=== PATIENT | female | born 1930 | race Caucasian/White ===

== ENCOUNTER 2016-12-06 06:42 | Emergency (ER) | payer MEDICARE, OTHER ==
[2016-12-06 07:22] VITALS: BP 129/85
--- NOTE | 2016-12-06 07:52 | ED ---
Head Injury - HPI Summary HPI Summary: Patient presents with her family after a mechanical fall at home. Her helped her up and she walked back to bed and slept until this AM. When she awoke there was blood on her pillow so she was brought in for evaluation. She denies LOC, neck pain, vomiting, amnesia or MÁRQUEZ. Her right rib hurts, but otherwise she has no hip, leg, shoulder, arm or back pain. She denies N/V/D or vision changes. - History Of Current Complaint Chief Complaint: EDHeadInjury Stated Complaint: FALL Time Seen by Provider: 12/06/16 07:13 Hx Obtained From: Patient, Family/Program Administrator Mechanism Of Injury: Fall From A Standing Position Onset/Duration: Started Hours Ago Onset of Pain: Immediate Severity Currently: Moderate Severity Initially: Moderate Pain Intensity: 6 Location of Head Injury: Parietal Character: Dull, Aching Associated Signs And Symptoms: Swelling - mild - Allergies/Home Medications Allergies/Adverse Reactions: Allergies Allergy/AdvReac Type Severity Reaction Status Date / Time No Known Allergies Allergy Verified 06/06/15 09:34 PMH/Surg Hx/FS Hx/Imm Hx Endocrine/Hematology History: Denies: Hx Anticoagulant Therapy Cardiovascular History: Reports: Hx Hypercholesterolemia, Hx Hypertension Denies: Hx Pacemaker/ICD GI History: Reports: Hx Diverticulosis Musculoskeletal History: Reports: Hx Arthritis, Hx Osteoporosis Denies: Hx Rheumatoid Arthritis Sensory History: Denies: Hx Hearing Aid Neurological History: Reports: Hx Dementia, Other Neuro Impairments/Disorders - intracranial hemorrhage 2010 Psychiatric History: Denies: Hx Panic Disorder - Cancer History Hx Chemotherapy: No Hx Radiation Therapy: No - Surgical History Surgery Procedure, Year, and Place: CATARACT 2000, POLYPECTOMY 2003 Infectious Disease History: No Infectious Disease History: Denies: Traveled Outside the [place] in Last 30 Days - Family History Known Family History: Positive: None - Social History Occupation: Retired Lives: With Family Alcohol Use: None Substance Use Type: Reports: None Smoking Status (MU): Never Smoked Tobacco Review of Systems Negative: Fever, Chills Negative: Blurred Vision, Diplopia, Drainage Negative: Chest Pain Negative: Shortness Of Breath Negative: Abdominal Pain, Vomiting, Nausea Negative: Edema Positive: Other - laceration to posterior scalp Negative: Headache, Weakness, Paresthesia All Other Systems Reviewed And Are Negative: Yes Physical Exam Triage Information Reviewed: Yes Vital Signs On Initial Exam: Initial Vitals Temp Pulse Resp BP Pulse Ox 98.3 F 57 18 92/54 98 12/06/16 06:46 12/06/16 06:46 12/06/16 06:46 12/06/16 06:46 12/06/16 06:46 Vital Signs Reviewed: Yes Appearance: Positive: Well-Appearing, No Pain Distress, Well-Nourished Skin: Positive: Warm, Skin Color Reflects Adequate Perfusion, Dry, Tender - posterior scalp, Soft Head/Face: Positive: Normal Head/Face Inspection Eyes: Positive: EOMI, ANTHONY, Conjunctiva Clear ENT: Positive: Hearing grossly normal, Pharynx normal, TMs normal Neck: Positive: Supple, Nontender, No Lymphadenopathy Respiratory/Lung Sounds: Positive: Clear to Auscultation, Breath Sounds Present Cardiovascular: Positive: Bradycardia Abdomen Description: Positive: Nontender, Soft Bowel Sounds: Positive: Present Musculoskeletal: Positive: Strength/ROM Intact, Pain @ - TTP right lower anterior ribs; non-tender pelvis, sternum, shoulders, bilateral LE Neurological: Positive: Sensory/Motor Intact, Alert, Oriented to Person Place, Time, CN Intact II-III, NV Bundle Intact Distally Psychiatric: Positive: Affect/Mood Appropriate AVPU Assessment: Alert - [place] Coma Scale Coma Scale Total: 15 Procedures - Laceration/Wound Repair 1 Location: head Description: Linear Anesthesia: Local, 2.0%, Lido, Epi Length, Depth and Shape: 1.5 cm long, 3mm wide, 3mm deep Irrigated w/ Saline (ccs): 200 Laceration/Wound Explored: clean Closure: [place] #__ - 6 Debridement: minimal Layer Closure?: No Sterile Dressing Applied?: No Diagnostics - Vital Signs Vital Signs Temp Pulse Resp BP Pulse Ox 12/06/16 07:22 98.7 F 59 14 129/85 93 12/06/16 07:20 98.7 F 57 14 129/58 93 12/06/16 07:00 55 93 12/06/16 06:59 55 93 12/06/16 06:57 129/58 12/06/16 06:46 98.3 F 57 18 92/54 98 - Laboratory Lab Statement: Any lab studies that have been ordered have been reviewed, and results considered in the medical decision making process. - CT No standard instances CT Interpretation: No Acute Changes CT Interpretation Completed By: Radiologist - CT brain negative; Head Injury Course/Dx - Diagnoses Differential Diagnosis/HQI/PQRI: Cerebral Contusion, Cervical Sprain, Contusion , Hematoma, Laceration, Skull Fracture Provider Diagnoses: Head injury, Laceration of scalp, Rib pain on right side Discharge - Discharge Plan Condition: Stable Disposition: HOME Patient Education Materials: Head Injury (ED), Staple Care (ED), Rib Contusion (ED) Referrals: Cassie Klein MD [Primary Care Provider] - Additional Instructions: Please follow-up with your primary care provider in 5 days for staple removal. Use Tylenol for pain. Make sure to take deep breaths at least once every hour. Return to the emergency department if your symptoms worsen.
--- NOTE | 2016-12-06 08:58 | RAD ---
HISTORY: Fall, scalp laceration COMPARISONS: January 07, 2015 TECHNIQUE: Multiple contiguous axial CT scans were obtained of the head without intravenous contrast. FINDINGS: HEMORRHAGE/INFARCT: There is no hemorrhage or acute infarct. MASSES/SHIFT: There is no mass or shift. EXTRA-AXIAL SPACES: There are no extra-axial fluid collections. SULCI AND VENTRICLES: The sulci and ventricles are normal in size and position for the patient's stated age. CEREBRUM: Again noted is a left occipital encephalomalacia. BRAINSTEM: There are no focal parenchymal abnormalities. CEREBELLUM: There are no focal parenchymal abnormalities. VESSELS: The vessels are grossly normal. PARANASAL SINUSES: The paranasal sinuses are clear. ORBITS: The orbits are unremarkable. BONES AND SOFT TISSUE: There is a right parietal scalp hematoma OTHER: None IMPRESSION: 1. NO ACUTE INTRACRANIAL PATHOLOGY. 2. STABLE LEFT OCCIPITAL ENCEPHALOMALACIA. 3. RIGHT PARIETAL SCALP HEMATOMA
--- NOTE | 2016-12-06 09:01 | RAD ---
HISTORY: Status post fall, head injury COMPARISONS: None TECHNIQUE: Multiple contiguous axial CT scans were obtained of the cervical spine without intravenous contrast, with coronal and sagittal multiplanar reformations. FINDINGS: BRAIN: Again noted is a left occipital encephalomalacia. CENTRAL CANAL: Evaluation of the central canal is limited on CT technique; however, there is no obvious canalicular mass or epidural hemorrhage. ALIGNMENT: The alignment is normal, without subluxation or dislocation. VERTEBRAL BODIES: There is diffuse osteopenia. Is multilevel anterolateral marginal osteophyte formation. There is no displaced fracture. JOINTS: There is osteoarthritis of the uncovertebral and facet joints MUSCULATURE: Unremarkable INTERVERTEBRAL DISCS: There is diffuse loss of intervertebral disc height. AXIAL IMAGES: C2-C3: There is bilateral uncovertebral and facet joints. There is moderate left neural foraminal narrowing. There is no osseous central canal stenosis. C3-C4: There is bilateral vertebral and facet hypertrophy. There is moderate bilateral neural foraminal narrowing. There is no osseous central canal stenosis. C4-C5: There is a broad-based disc osteophyte complex with bilateral uncovertebral facet hypertrophy. There is moderate to severe right and mild left neural foraminal narrowing. There is no osseous central canal stenosis. C5-C6: There is bilateral uncovertebral facet hypertrophy. There is moderate to severe bilateral neural foraminal narrowing. There is no osseous central canal stenosis. C6-C7: There is no osseous neural foraminal narrowing or central canal stenosis. C7-T1: There is no osseous neural foraminal narrowing or central canal stenosis. SOFT TISSUES: There is cavitation of the aortic arch and carotid bifurcations. The prevertebral fat stripe is preserved. OTHER: None. IMPRESSION: 1. OSTEOPENIA. 2. DEGENERATIVE DISC DISEASE AND OSTEOARTHRITIS. 3. ATHEROSCLEROSIS 4. NO ACUTE OSSEOUS INJURY TO THE CERVICAL SPINE
--- NOTE | 2016-12-06 10:12 | RAD ---
HISTORY: Fall, rib pain COMPARISONS: January 07, 2015 VIEWS: 2: Frontal and lateral views of the chest. FINDINGS: CARDIOMEDIASTINAL SILHOUETTE: The cardiomediastinal silhouette is stable. ASHANTI: The ashanti are normal. PLEURA: The costophrenic angles are sharp. No pleural abnormalities are noted. LUNG PARENCHYMA: The lungs are clear. ABDOMEN: The upper abdomen is clear. There is no subphrenic gas. BONES AND SOFT TISSUES: There is a scoliotic curvature of the spine OTHER: None. IMPRESSION: SCOLIOSIS. NO ACTIVE CARDIOPULMONARY DISEASE.
--- NOTE | 2016-12-06 10:13 | RAD ---
HISTORY: Right hip pain, fall COMPARISONS: None VIEWS: 3, Frontal view of the pelvis with frontal and frog-leg views of the right hip. The patient is obliqued to the left. FINDINGS: BONE DENSITY: There is diffuse osteopenia. BONES: There is no displaced fracture. JOINTS: There is mild osteoarthritis of the hips and SI joints ALIGNMENT: There is no dislocation. SOFT TISSUES: Unremarkable. OTHER FINDINGS: There is collateral curvature of the spine IMPRESSION: 1. OSTEOPENIA. 2. NO RADIOGRAPHIC EVIDENCE FOR HIP FRACTURE. X-RAYS MAY BE NEGATIVE WITH NONDISPLACED HIP FRACTURE, IF THERE IS PERSISTENT CLINICAL CONCERN, RECOMMEND CONSIDERATION OF MRI. IN THE SETTING OF CONTRAINDICATION TO MRI OR LIMITATION IN EMERGENT ACCESS TO MRI, CT WOULD BE SUGGESTED.
== END 2016-12-06 10:28 | disposition home or self-care (01) ==
LOC: ED 06:42
DX: S01.01XA Laceration without foreign body of scalp, initial encounter (principal); S09.90XA Unspecified injury of head, initial encounter; W19.XXXA Unspecified fall, initial encounter; Y93.9 Activity, unspecified; Y92.9 Unspecified place or not applicable; Y99.9 Unspecified external cause status
CPT/HCPCS: 12011; 70450; 71020; 72125; 99282

== ENCOUNTER 2017-07-25 09:52 | Inpatient (IN) | payer MEDICARE, OTHER ==
[2017-07-25] MEDS ORDERED: LORazepam INJ* 2 MG/ML 1 ML VIAL ONE (10:02)
[2017-07-25 10:15] LABS: Hematocrit 37 % (35-47); Hemoglobin 12.3 g/dl (12.0-16.0); Mean Corpuscular HGB Conc 33 g/dl (31-36); Mean Corpuscular Hemoglobin 32 pg (27-31); Mean Corpuscular Volume 95 fL (80-97); Mean Platelet Volume 9 um3 (7.4-10.4); Red Blood Count 3.91 10^6/ul (4.0-5.4); Red Cell Distribution Width 14 % (10.5-15); White Blood Count 10.7 10^3/ul (3.5-10.8)
[2017-07-25 10:33] LABS: Albumin 3.8 g/dL (3.2-5.2); BUN/Creatinine Ratio 10.2 (8-20); Calcium 10.4 mg/dL (8.6-10.3); EGFR African American 69.4 (>60); EGFR Non-African American 53.9 (>60); Globulin 2.6 g/dL (2-4); Potassium 4.2 mmol/L (3.5-5.0); Total Bilirubin 0.7 mg/dL (0.2-1.0); Total Protein 6.4 g/dL (6.4-8.9)
[2017-07-25 10:35] LABS: Troponin I 0.03 ng/mL (<0.04)
--- NOTE | 2017-07-25 10:36 | RAD ---
HISTORY: Right-sided weakness COMPARISONS: December 06, 2016 TECHNIQUE: Multiple contiguous axial CT scans were obtained of the head without intravenous contrast. FINDINGS: HEMORRHAGE/INFARCT: There is no hemorrhage or acute infarct. MASSES/SHIFT: There is no mass or shift. EXTRA-AXIAL SPACES: There are no extra-axial fluid collections. SULCI AND VENTRICLES: The sulci and ventricles are normal in size and position for the patient's stated age. CEREBRUM: There is encephalomalacia consistent with right infarct of the left parietal lobe, occipital lobe, and posterior temporal lobe. This is stable when compared to the December 06, 2016 examination. BRAINSTEM: There are no focal parenchymal abnormalities. CEREBELLUM: There are no focal parenchymal abnormalities. VESSELS: There is calcification of the cavernous segments of the internal carotid arteries bilaterally and of the distal vertebral arteries bilaterally. PARANASAL SINUSES: There is opacification of the sphenoid sinus with osteitis of the surrounding bone and high attenuation material within the sinus. There is an air-fluid level within the sphenoid sinus. ORBITS: The orbits are unremarkable. BONES AND SOFT TISSUE: No bone or soft tissue abnormalities are noted. OTHER: None IMPRESSION: 1. NO ACUTE INTRACRANIAL PATHOLOGY. 2. EVIDENCE OF REMOTE LEFT CAFETERIA AIDE TERRITORY STROKE. 3. FINDINGS SUGGESTIVE OF CHRONIC SPHENOID SINUSITIS, WITH HIGH ATTENUATION MATERIAL WHICH MAY INDICATE A FUNGAL COMPONENT. THERE IS AN AIR-FLUID LEVEL WHICH MAY INDICATE ACUTE ON CHRONIC SINUSITIS.
--- NOTE | 2017-07-25 11:04 | RAD ---
HISTORY: Right-sided weakness COMPARISONS: December 06, 2016 VIEWS: 1: frontal portable view of the chest at 10:35 AM FINDINGS: LINES AND TUBES: None. CARDIOMEDIASTINAL SILHOUETTE: The cardiac silhouette is enlarged. The cardiomediastinal silhouette is otherwise normal for portable technique. PLEURA: The costophrenic angles are sharp. No pleural abnormalities are noted. LUNG PARENCHYMA: There is hyperinflation. ABDOMEN: The upper abdomen is clear. There is no subphrenic gas. BONES AND SOFT TISSUES: There is a scoliotic curvature of the spine IMPRESSION: 1. CARDIOMEGALY. 2. COPD. 3. SCOLIOSIS.
[2017-07-25] MEDS ORDERED: Aspirin SUPP* 300 MG PR ONE (11:20)
[2017-07-25] MEDS ORDERED: Ondansetron INJ* 2 MG/ML VIAL IV PRN (12:15)
[2017-07-25] MEDS ORDERED: Acetaminophen SUPP* 650 MG SUPP PR PRN (12:15)
[2017-07-25] MEDS ORDERED: Zosyn per Pharmacy* NOTE FOLLOW UP SCH (13:00)
--- NOTE | 2017-07-25 13:42 | RAD ---
HISTORY: Stroke COMPARISONS: January 08, 2015 TECHNIQUE: Multiple transverse and longitudinal ultrasound images were obtained of the carotid and vertebral arteries bilaterally, using grayscale, color Doppler, and spectral Doppler imaging. FINDINGS: Measurement of carotid stenosis is based on flow velocity parameters that correlate the residual internal carotid artery diameter with [place] Symptomatic Carotid Endarterectomy Trial (NASCET)-based stenosis levels. RIGHT: Intima: There is diffuse intimal thickening with more focal atheroma formation at the bifurcation. Velocities: Right internal carotid artery maximum peak systolic velocity: 71 cm/s Right common carotid artery maximum peak systolic velocity: 81 cm/s Right internal carotid artery/common carotid artery ratio: 0.8 Waveforms: There is no spectral broadening. Right Vertebral: The right vertebral artery flow is antegrade. LEFT: Intima: There is diffuse intimal thickening with more focal atheroma formation at the bifurcation. Velocities: Left internal carotid artery maximum peak systolic velocity: 80 cm/s Left common carotid artery maximum peak systolic velocity: 46 cm/s Left internal carotid artery/common carotid artery ratio: 1.7 Waveforms: There is no spectral broadening. Left Vertebral: The left vertebral artery flow is antegrade. OTHER FINDINGS: None. IMPRESSION: 1. ATHEROMATOUS DISEASE. 2. NO HEMODYNAMICALLY SIGNIFICANT STENOSIS OF THE RIGHT INTERNAL CAROTID ARTERY BY FLOW VELOCITY MEASUREMENTS. THIS CORRESPONDS TO A LUMINAL DIAMETER OF LESS THAN 50% STENOSIS BY NASCET CRITERIA. 3. NO HEMODYNAMICALLY SIGNIFICANT STENOSIS OF THE LEFT INTERNAL CAROTID ARTERY BY FLOW VELOCITY MEASUREMENTS. THIS CORRESPONDS TO A LUMINAL DIAMETER OF LESS THAN 50% STENOSIS BY NASCET CRITERIA. 4. LOW VELOCITIES WITHIN THE COMMON CAROTID ARTERIES WHICH MAY REFLECT DECREASED CARDIAC OUTPUT. CPT II Codes: 3100F
[2017-07-25 13:47] LABS: Prolactin 69.5 ng/mL (1.0-25.0)
--- NOTE | 2017-07-25 13:51 | CONS ---
NEUROLOGY CONSULTATION: DATE OF CONSULT: 07/25/17. LOCATION: The patient is in the emergency department. REQUESTING PHYSICIAN: Gerard Navarro MD. REASON FOR CONSULT: Possible stroke. HISTORY OF PRESENT ILLNESS: Andres Cox is an 86-year-old woman with a history of a hemorrhagic stroke in 2010 as well as a small lacunar infarction in the left thalamus in 2014 who presented to the emergency department this morning when her daughter found her around 9 a.m. with staring and right-sided weakness. The patient was last seen normal last evening before she went to bed. Apparently, her daughter went to wake her up to get her breakfast around 9 a.m. this morning and the patient was able to awake and open her eyes but was just staring at her daughter and was not moving. The daughter contacted her sister, Magda Hoover who works here at [facility] [place] who advised that she call the ambulance because this is apparently a similar presentation to her first stroke in 2010. At baseline, the family tells me that the patient has very little in the way of deficits from her previous strokes. She is able to speak normally at baseline and is able to walk, though she has some dementia. She also did have some visual field problems after her hemorrhagic stroke which affected her left occipital region. Her daughter Magda believes that there may have been a seizure in the ambulance on the way here, but Dr. Navarro reports he was not given that information by placement assistant. There was definitely a seizure as the patient was being brought over to the CT scanner this morning. Dr. Navarro reports that even before this witnessed seizure the patient had right-sided weakness which is new. In addition, the patient has never had a witnessed seizure in the past according to family. She had essentially been in her normal state of health prior to this occurring this morning. PAST MEDICAL HISTORY: 1. Hemorrhagic stroke in 2010. 2. Ischemic stroke in the left thalamus in 2014. 3. Hyperlipidemia. 4. Hypertension, though patient is not on blood pressure medication aside from a diuretic. 5. Diverticulosis. 6. Arthritis. 7. Dementia. FAMILY HISTORY: Noncontributory at this time. SOCIAL HISTORY: No alcohol or tobacco use reported. She lives with her in a farm house and recently one of her daughters has come from [place] and is staying with them. HOME MEDICATIONS: 1. Escitalopram 10 mg daily. 2. Furosemide 20 mg half tablet daily. 3. Simvastatin 20 mg daily. 4. The family reports that the patient is not on an aspirin. ALLERGIES: No known drug allergies. PHYSICAL EXAMINATION: Vital Signs: Temperature 98.5, blood pressure 195/82, heart rate 68, oxygen saturation 99% on room air. On general examination, she is an elderly woman who is asleep in her hospital bed. She received 1 mg of Ativan IV when she had the seizure going to the CAT scanner. She does not open her eyes to voice or to sternal rub. She does not follow commands. Her heart is in irregular rhythm but it appears to be sinus on telemetry. Her lungs are clear to auscultation anteriorly. Musculoskeletal exam is notable for high arches and hammertoes. Intermittently, her left foot is noted to be inverted. There is no obvious joint erythema. There are no skin tears. On neurologic examination, she does not follow any commands as mentioned. Her gaze is midline. Pupils are equal, round and reactive from 4 to 2 mm bilaterally. There is no blink to threat in either barry. VORs are intact. There is no obvious facial asymmetry. On motor examination, she is flaccid in the right upper extremity. She has mildly increased tone in the left arm and more so in the left leg. She does have some effort against gravity when her left arm is lifted off the bed, but it would fall without being supported quickly. There is no effort in the right arm, except when noxious stimulation is applied she does flex the arm slightly and grimaces. She withdraws briskly in the other extremities. There is no inducible clonus. Her toes are chronically upgoing. LABORATORY DATA/DIAGNOSTIC STUDIES: CBC shows the white count of 10.7, hemoglobin 12.3, hematocrit 37, platelets of 219. Chemistry panel shows glucose of 159, calcium of 10.4 which is slightly above the upper limit of normal at 10.3, lactate 3.8. Her sodium, potassium are normal. LFTs are normal. Urinalysis has not been obtained. Coagulation studies show an INR of 0.86 and PTT of 19.7. A noncontrast brain CT was obtained and personally reviewed and shows an area of encephalomalacia in the left occipital lobe which is the area of prior hemorrhage by report. In addition, there is evidence of small vessel ischemic disease. The report also indicates that there are findings suggestive of chronic sphenoid sinusitis with high attenuation material, which may indicate a fungal component. There is an air-fluid level which may indicate an acute on chronic sinusitis. IMPRESSION: Andres Cox is a 86-year-old woman with a past history of both ischemic and hemorrhagic strokes in the past who presents today with new onset right hemiparesis as well as a seizure. The differential includes new left MCA territory stroke, complicated by seizure versus seizure complicated by postictal Johnnie's paralysis. She does have some evidence of increased tone in her left leg greater than left arm and given the fact that she had a witnessed seizure, I am going to ask the chorus dancer to perform an EEG quickly in order to evaluate for the possibility of subclinical seizures. If this is negative, then we will continue to watch her for any breakthrough seizure activity, but she should be admitted to the hospital for stroke workup including MRI of the brain, monitoring on telemetry, echocardiogram etc. She has been given an aspirin here in the emergency department. She is not a candidate for tPA secondary to her history of hemorrhagic stroke as well as last known normal to be last night before she went to bed. Thank you for this consultation. Dr. Jacobo takes over the neurology services evening and we will receive sign out on the patient. [id number]/[facility] #: [id number] [facility]IDE HOSPITALHarpal
--- NOTE | 2017-07-25 15:38 | HP ---
HISTORY AND PHYSICAL: ADDENDUM: Ms. Cox is an 86-year-old female with history of stroke in the past, who was brought into the hospital after she had a seizure-like episode in home and then in the ambulance. The patient was also noted to have a right- sided hemiparesis. She is going to be admitted to telemetry monitored floor for further evaluation of possibility of stroke and subsequent seizure or maybe seizure that caused Johnnie's paralysis. For further details of the patient's presentation and plan, please see history and physical dictated by Dick George NP, on 07/25/17, with which I agree. [id number]/[facility] #: [id number] MTDD
--- NOTE | 2017-07-25 16:11 | HP ---
ATTENDING PHYSICIAN ADDENDUM NOW INCLUDED ON THIS REPORT CC: Dr. Torres; Dr. Krueger * HISTORY AND PHYSICAL: DATE OF ADMISSION: 07/25/17 PRIMARY CARE PROVIDER: Dr. Torres. CONSULTING NEUROLOGIST: Dr. Krueger. ATTENDING PHYSICIAN WHILE IN THE HOSPITAL: Johana Ty MD * (report dictated by Dick George NP). CHIEF COMPLAINT: 1. Right-sided weakness. 2. Altered mental status. 3. Seizure. HISTORY OF PRESENT ILLNESS: I would like to preface this report by saying that the patient really cannot give much history at this moment and according to the daughter who lives with the patient, the patient last night was rather restless. She was talking to herself. She got up in the middle of night, thought that it was time to get up and she reoriented the patient. The patient went to bed about 9 o'clock last night. She was last seen normal at 9 o'clock. The daughter went up to evaluate the patient this morning and she noted that she was shaking, mumbling, and choking on her mucus and it appeared that she might have been having a seizure. So, she turned her to her side. She called her other family members and they said to call 911 and bring her to the hospital. She was nonresponsive. She was not acting herself. She would not respond to painful or verbal stimuli from the family. The patient came over via 911 and the family members were riding with her and while en route to the hospital, she had another what appeared to be a grand mal seizure. There was also noted to have right-sided weakness, the patient was not moving her right arm or right leg at that point. There have been no reports of change in medication. No reports of fevers, chills, nausea, vomiting. The patient has not been complaining of cough. Had not been having any fevers or had not been having any chest pain, abdominal discomfort, or any shortness of breath to their knowledge. They were concerned though obviously because of altered mental status. She came in to ER, was evaluated. Actually when she came in here, she was seizing and she was noted to have right-sided weakness, so we were asked to evaluate for admission. PAST MEDICAL HISTORY: 1. She has had a history of CVA. 2. She has had an intracranial hemorrhage. 3. She has had hypertension. 4. Hyperlipidemia. 5. Osteoarthritis. 6. History of CHF. 7. History of diverticulosis. PAST SURGICAL HISTORY: She has had an appendectomy. MEDICATIONS: The home meds include: 1. Simvastatin 20 mg daily. 2. Lasix 10 mg daily. 3. Lexapro 10 mg daily. ALLERGIES: Her allergies to medications include no known drug allergies. FAMILY HISTORY: Mother at the age of 58 of a heart attack. SOCIAL HISTORY: She has never been a smoker. She has never been a drinker. Her surrogate decision maker is her daughter, Magda. REVIEW OF SYSTEMS: Again, unable to be obtained from the patient as she is again nonverbal at this point. PHYSICAL EXAMINATION GENERAL: At this time, Mrs. Cox is an 86-year-old female patient. She is sitting in the ER stretcher. She does not appear to be in any acute respiratory distress. She appears to be well developed. VITAL SIGNS: Blood pressure 176/75, pulse 67, respirations 16, O2 sat 99%, and temperature 98.5. HEENT: Head: Atraumatic. Eyes: Sclerae are anicteric. Pupils are equal and reactive to light. Throat: Oral mucosa appears to be dry. No oropharyngeal erythema. NECK: Supple. LUNGS: Clear to auscultation bilaterally. No wheezes, rales, or rhonchi. HEART: Sounds S1, S2. Regular rate and rhythm. No murmurs, rubs, or gallops. ABDOMEN: Soft, flat, nontender. Bowel sounds were present. EXTREMITIES: She had no peripheral edema. Pulses are 2+ throughout. NEUROLOGIC: She will open her eyes to painful stimuli only. She is unable to say her name, unable to say what month it is or the place. 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 She is moving the left leg grossly. She is unable to follow commands for [id number] or [id number] at this point. She had no facial drooping and again she does appear to be hemiparetic on the right side. She has some movement in the right arm. She is not moving her right leg and again not really following simple commands. SKIN: Intact. DIAGNOSTIC STUDIES/LAB DATA: WBC 10.7, RBC of 3.91, hemoglobin 12.3, hematocrit 37, and platelet count of 219. INR was 0.86. PTT 19.7. Sodium 138 , potassium was 4.2, chloride of 102, bicarb 28, BUN 10, creatinine of 0.98, and glucose 159. Lactate 3.9. Calcium 10.4. Total bili 0.78, AST 19, ALT 10, alk phos 51. Troponin 0.03. Albumin 3.8. She did have a chest x-ray obtained today, which revealed cardiomegaly, COPD, and scoliosis. 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 There is an air fluid level, which may indicate acute on chronic sinusitis. There was an EKG obtained today, which showed a sinus rhythm with a rate of 71. She did have biphasic T waves in V4 and V5, and flat T wave at V6, which appeared to be new and there is also flattened T waves in II, III, and aVF, again all of which appeared to be new from previous EKG from 2 years ago. She did have an echo, which revealed an EF of greater than 65% and that was in 2015. Old medical records were reviewed. ASSESSMENT AND PLAN: Mrs. Cox is an 86-year-old female patient coming in to the ER today with complaints of right-sided weakness having seizures now presumably 2 seizures, possible aspiration pneumonia with the first seizure. We were asked to evaluate for admission. She will be admitted under inpatient status for: 1. Altered mental status. I suggest that she may have had, again it sounds like she had a seizure. Dr. Krueger is evaluating the patient. She was hooked up to EEG. She does not appear to be actively seizing now or in status. The patient was given 2 of Ativan. The plan would be to continue to monitor. Should she seize again, we will consider antiepileptics. She may also have had a stroke. She has right-sided hemiparesis particularly in the right upper extremity. The plan will be to get an MRI, carotid ultrasound. The family does not want to pursue aggressive surgeries or intracranial stenting or clot retrieval. They will continue with an MRI. We will forgo CTA. We will get an echo. She has been started on aspirin. I am holding on any DVT prophylaxis as I do not want her to have a hemorrhagic conversion. For the time being, we will get neuro checks every 2 hour. We will check lipids and A1c in the morning. I have ordered a swallow PT and OT evaluation and speech evaluation. 2. History of cerebrovascular accident. Again, continue with aspirin. 3. Intracranial hemorrhage. Not active at this point, but again we will watch closely. 4. Hypertension. Rule out for permissive hypertension in the setting of a possible acute cerebrovascular accident. We will treat if it is greater than 200 systolically or greater than 110 diastolically. Right now, she is okay. 5. Hyperlipidemia. Continue statin therapy when she is able to take p.o. 6. Arthritis. I have ordered p.r.n. Tylenol as needed. 7. History of congestive heart failure. We will diurese her as needed. 8. DVT prophylaxis. Again, SCDs only. 9. Code status. DNR. 10. Fluids, electrolytes, and nutrition. She is n.p.o. pending swallow eval, but at this point I do not think she will be able to participate in swallow safely. TIME SPENT: Time spent on the admission was 60 minutes, greater than half the time was spent [id number] with the patient obtaining my history and physical; other half time was spent going over the plan of care and implementing plan of care. I did discuss the plan of care with my attending, Dr. Ty, she is in agreement. DICK GEORGE NP ADDENDUM: Ms. Cox is an 86-year-old female with history of stroke in the past, who was brought into the hospital after she had a seizure-like episode in home and then in the ambulance. The patient was also noted to have a right-sided hemiparesis. She is going to be admitted to telemetry monitored floor for further evaluation of possibility of stroke and subsequent seizure or maybe seizure that caused Johnnie's paralysis. For further details of the patient's presentation and plan, please see history and physical dictated by Dick George NP, on 07/25/17, with which I agree. JOHANA TY MD [id number]/[facility]PS #: [id number]/CPS #: [id number] ITZEL
[2017-07-25 16:41] LABS: Urine Bilirubin Negative (Negative); Urine Glucose Negative (Negative); Urine Nitrite Negative (Negative)
--- NOTE | 2017-07-25 17:58 | ECHO ---
Patient: ANGELES STALLWORTH [facility] Rec#: [id number] : 1930 Date: 07/25/2017 Age: 86y Height: 157 cm / 61.8 in Weight: 45.4 kg / 100.1 lbs Sex: F BSA: 1.4 Room#: 437 Admit Date#: 07/25/2017 Type: Inpatient Referring: Dick George NP Reading: Kristen Stone MD Deli Clerk: Tabitha Wills RN RDCS CC: Cassie Torres MD Transthoracic Echocardiogram Indication: CVA BP: 176/75 HR: 61 Rhythm: NSR with PACs Findings History: HTN, HLD, CVAs, intracranial hemorrhage, pulmonary HTN, dementia Technical Comments: The study quality is fair. The study is technically limited due to patient body habitus. Completed at 1620. Left Ventricle: The left ventricular chamber size is normal. Global left ventricular wall motion and contractility are within normal limits. There is normal left ventricular systolic function. The estimated ejection fraction is 60-65%. There is an E to A reversal in the mitral valve flow pattern suggestive of diastolic dysfunction. Left Atrium: The left atrial chamber size is normal. Right Ventricle: The right ventricular cavity size is normal. The right ventricular global systolic function is normal. Right Atrium: The right atrial cavity size is normal. A patent foramen ovale is not demonstrated by color Doppler. A bubble study was unable to be performed at this time due to lack of IV access. Aortic Valve: The aortic valve is trileaflet. The aortic valve leaflets are mildly thickened. There is mild to moderate aortic regurgitation. There is no evidence of aortic stenosis. Mitral Valve: The mitral valve leaflets are mildly thickened. There is mild to moderate mitral regurgitation. There is no evidence of mitral stenosis. Tricuspid Valve: The tricuspid valve leaflets are normal. There is moderate tricuspid regurgitation. The tricuspid regurgitant jet is wall impinging. There is evidence of mild to moderate pulmonary hypertension. There is no tricuspid stenosis. Pulmonic Valve: The pulmonic valve appears normal. There is mild to moderate pulmonic regurgitation. There is no pulmonic stenosis. Pericardium: There is no significant pericardial effusion. Aorta: There is no dilatation of the ascending aorta. There is no dilatation of the aortic arch. There is no dilation of the aortic root. Pulmonary Artery: The main pulmonary artery appears normal. Venous: The inferior vena cava appears normal in size. There is a greater than 50% respiratory change in the inferior vena cava dimension. Summary: There are changes noted when compared to the previous study done on 01/09/2015, there is mild increase in mixed valvular disease velocity. Conclusions The left ventricular chamber size is normal. There is normal left ventricular systolic function. The estimated ejection fraction is 60-65%. There is an E to A reversal in the mitral valve flow pattern suggestive of diastolic dysfunction. A patent foramen ovale is not demonstrated by color Doppler. A bubble study was unable to be performed at this time due to lack of IV access. There is mild to moderate aortic regurgitation. There is mild to moderate mitral regurgitation. There is moderate tricuspid regurgitation. There is evidence of mild to moderate pulmonary hypertension. There is mild to moderate pulmonic regurgitation. There are changes noted when compared to the previous study done on 01/09/2015, there is mild increase in mixed valvular disease velocity. Measurements Name Value Normal Range RVDdMajor (2D) 3.3 cm (2.2 - 4.4) RAd ISD 4CH 4.7 cm (3.4 - 4.9) RA (A4C)W 4.1 cm (2.9 - 4.6) IVSd (2D) 1 cm (0.6 - 1) LVPWd (2D) 1 cm (0.6 - 1) LVIDd (2D) 3.6 cm (3.6 - 5.4) LVIDs (2D) 2.5 cm - LV FS (2D) 31 % (25 - 45) Aortic Annulus 2 cm (1.4 - 2.6) Ao root diameter (2D) 2.9 cm (2.1 - 3.5) Ascending Ao 3.4 cm (2.1 - 3.4) Aortic arch 3 cm (1.8 - 3.4) LA dimension (AP) 2D 3.6 cm (2.3 - 3.8) LAd ISD 4CH 4.3 cm (2.9 - 5.3) LA ISD 4CH W 3.8 cm (2.5 - 4.5) Name Value Normal Range LA ESV SP 4CH (A/L) 35.4 ml - LA ESV SP 2CH (A/L) 24.8 ml - LA ESV BP (A/L) 31.2 ml - LA ESV BP (A/L) index 21.8 ml/m2 - LA ESV SP 4CH (MOD) 34.3 ml - LA ESV SP 2CH (MOD) 23.1 ml - Name Value Normal Range MV E-wave Vmax 0.56 m/sec - MV deceleration time 223 msec - MV A-wave Vmax 0.71 m/sec - MV E:A ratio 0.79 ratio - LV septal e' Vmax 0.05 m/sec - LV lateral e' Vmax 0.06 m/sec - LV E:e' septal ratio 11.2 ratio - LV E:e' lateral ratio 9.3 ratio - Name Value Normal Range AV Vmax 1.2 m/sec - AV VTI 27 cm - AV peak gradient 6 mmHg - AV mean gradient 3.4 mmHg - LVOT Vmax 1 m/sec - LVOT VTI 24.3 cm - LVOT peak gradient 4.1 mmHg - LVOT mean gradient 3 mmHg - [place] Vmax 0.45 m/sec - Name Value Normal Range TR Vmax 3.2 m/sec - TR peak gradient 41 mmHg - RAP 3 mmHg - RVSP 44 mmHg - IVC diameter 1.2 cm - Name Value Normal Range PV Vmax 0.82 m/sec -
--- NOTE | 2017-07-25 18:31 | RAD ---
Indication: CVA. RIGHT-sided weakness. History of hemorrhagic stroke in 2010 and small lacunar infarct in 2014. Comparison: July 25, 2017 CT. January 08, 2015 MRI. Technique: Cognusea 1.5 Bibi AD526D with GEM suite. MRI brain without contrast. Report: Diffusion series is negative for acute or subacute ischemia. Stigmata of hemosiderin deposition corresponding with the region of encephalomalacia at the LEFT parietal and occipital lobes without change consistent with sequela of an old hemorrhagic infarct. Moderate diffuse prominence of the cerebral sulci. Mild enlargement of the ventricles. Patent basal cisterns. Multiple unchanged small lacunar infarcts at the bilateral cerebellar hemispheres. Increased signal in the periventricular and subcortical white matter of the cerebral hemispheres without gross change is most suggestive of chronic small vessel ischemic disease. Preserved major intracranial flow-voids. Unremarkable orbital contents. No suspicious calvarial or skull base lesions evident. Unremarkable scalp. IMPRESSION: 1. Stigmata of prior hemorrhagic infarct at the LEFT parietal and occipital lobes. 2. Multiple small lacunar infarcts at the cerebellar hemispheres. 3. Negative for stigmata of acute or subacute ischemia. 4. Negative for mass effect. 5. Involutional change and stigmata of chronic small vessel ischemic disease.
[2017-07-25] MEDS: ZOSYN 3.375 GM Q8H per EXTENDED INFUSION IVPB SCH ×2 (20:59)
--- NOTE | 2017-07-26 03:03 | EEG ---
ELECTROENCEPHALOGRAPHY: DATE OF STUDY: 07/25/17 LOCATION: The patient was in the emergency department. HISTORY: This is an 86-year-old woman with a history of prior strokes who was last seen normal last evening. She was found by her daughter unable to speak and having right-sided weakness. She then had a witnessed seizure in the ER and was given 1 mg of Ativan. She is now difficult to arouse, not following commands and with persistent right-sided weakness, but also increased tone on the left side. EEG is requested to evaluate for subclinical seizures. MEDICATIONS: 1. Zosyn. 2. Ondansetron. 3. Acetaminophen. 4. Aspirin. 5. Ativan 1 mg. DESCRIPTION: The background demonstrates diminished organization in terms of voltage and frequencies. In general, the background consists of mixed frequency , polymorphic slowing. Intermittently, there is a posterior rhythm identifiable in the right hemisphere, which is approximately 6 Hz, irregular and poorly sustained. This was not observed in the left hemisphere. The patient is noted to arouse somewhat easily to stimulation and there is some emergence of fast frequency activity. Throughout the recording, there were no epileptiform discharges, focal features , paroxysmal features or significant interhemispheric asymmetries. IMPRESSION: This is an abnormal EEG due to the presence of diffuse background slowing, a slow posterior rhythm, which is intermittently observable in the right hemisphere, but not present in the left hemisphere. These findings are suggestive of a mild to moderate, nonspecific, diffuse encephalopathy, which affects the left hemisphere to a greater degree. There are no epileptiform abnormalities or seizures noted during this recording. [id number]/[facility] #: [id number] [facility]
[2017-07-26 05:15] LABS: Hematocrit 32 % (35-47); Mean Corpuscular HGB Conc 34 g/dl (31-36); Mean Corpuscular Hemoglobin 33 pg (27-31); Mean Corpuscular Volume 97 fL (80-97); Red Blood Count 3.36 10^6/ul (4.0-5.4); Red Cell Distribution Width 14 % (10.5-15); White Blood Count 9.6 10^3/ul (3.5-10.8)
[2017-07-26 05:20] LABS: Add Diff/Slide Review? Slide Review Added; Comments Flag Yes
[2017-07-26] MEDS: ZOSYN 3.375 GM Q8H per EXTENDED INFUSION IVPB SCH ×2 (05:20)
[2017-07-26 05:24] LABS: BUN/Creatinine Ratio 12.3 (8-20); Blood Urea Nitrogen 14 mg/dL (6-24); CO2 Carbon Dioxide 30 mmol/L (22-32); Calcium 9.7 mg/dL (8.6-10.3); Chloride 105 mmol/L (101-111); Cholesterol 172 mg/dL; EGFR African American 58.3 (>60); EGFR Non-African American 45.3 (>60); Glucose 92 mg/dL (70-100); HDL Cholesterol 39.9 mg/dL; LDL Cholesterol 112 mg/dL; Sodium 138 mmol/L (133-145); Triglycerides 101 mg/dL
[2017-07-26 05:29] LABS: Anion Gap 3 mmol/L (2-11)
[2017-07-26 06:18] LABS: Mean Platelet Volume 10 um3 (7.4-10.4)
[2017-07-26] MEDS ORDERED: levETIRAcetam TAB* 500 MG PO SCH (09:00)
[2017-07-26] MEDS ORDERED: Influenza VAC *QUAD* 2017-18* 0.5 ML SYRINGE IM ONE (09:00)
--- NOTE | 2017-07-26 09:03 | PN ---
Subjective Date of Service: 07/26/17 Interval History: Patient not able to make her needs known. Objective Active Medications: Acetaminophen (Tylenol Supp*) 650 mg KS Q4H PRN PRN Reason: FEVER/PAIN Aspirin (Aspirin Supp*) 300 mg KS DAILY [facility] Levetiracetam (Keppra Iv Premix*) 500 mg in 100 mls @ 400 mls/hr IV Q12H [facility] Potassium Chloride/Dextrose (D5w 1/2 Ns Kcl 20 Meq 1000 Ml*) 1,000 mls @ 75 mls /hr IV PER RATE [facility] Influenza Virus Vaccine (Fluarix *Quad* 2016-*) 0.5 ml IM .ONCE ONE Stop: 07/26/17 09:01 Ondansetron HCl (Zofran Inj*) 4 mg IV Q6H PRN PRN Reason: NAUSEA Vital Signs 07/25/17 07/25/17 07/25/17 11:30 12:00 12:30 Temperature Pulse Rate 58 57 54 Respiratory 16 14 14 Rate Blood Pressure 162/63 168/69 164/66 (mmHg) O2 Sat by Pulse 99 100 100 Oximetry 07/25/17 07/25/17 07/25/17 13:00 14:00 14:05 Temperature 97.8 F 98.1 F Pulse Rate 64 64 64 Respiratory 19 16 Rate Blood Pressure 169/67 138/53 138/53 (mmHg) O2 Sat by Pulse 100 99 99 Oximetry 07/25/17 07/25/17 07/25/17 19:54 20:00 23:19 Temperature 98.2 F Pulse Rate 51 47 Respiratory 16 16 20 Rate Blood Pressure 148/80 115/52 (mmHg) O2 Sat by Pulse 100 100 Oximetry 07/26/17 07/26/17 07/26/17 01:25 03:24 07:47 Temperature 96.9 F 98.5 F Pulse Rate 52 44 Respiratory 20 20 Rate Blood Pressure 151/55 140/53 (mmHg) O2 Sat by Pulse 100 100 100 Oximetry Oxygen Devices in Use Now: Nasal Cannula Appearance: Lethargic, head partly up in bed. Neutral affect. Looks comfortable. Eyes: No Scleral Icterus Neck: NL Appearance and Movements; NL JVP, No Thyroid Enlargement, Masses Respiratory: Symmetrical Chest Expansion and Respiratory Effort, Clear to Auscultation, Clear to Percussion Extremities: No Edema, No Clubbing, Cyanosis, - Skin: No Rash or Ulcers, No Nodules or Sclerosis, - Neurological: - - Some eye contact. Severe aphasia, repeats nonsense syllable to every question, no sign of comprehension. No tremor. Result Diagrams: 07/26/17 04:58 07/26/17 04:58 Additional Lab and Data: Lab Results 07/25/17 07/25/17 07/25/17 Range/Units 10:00 10:00 10:00 WBC 10.7 (3.5-10.8) 10^3/ul RBC 3.91 L (4.0-5.4) 10^6/ul Hgb 12.3 (12.0-16.0) g/dl Hct 37 (35-47) % MCV 95 (80-97) fL MCH 32 H (27-31) pg MCHC 33 (31-36) g/dl RDW 14 (10.5-15) % Plt Count 219 (150-450) 10^3/ul MPV 9 (7.4-10.4) um3 Neut % (Auto) 69.8 (38-83) % Lymph % (Auto) 23.5 L (25-47) % [place] % (Auto) 4.9 (1-9) % Eos % (Auto) 1.0 (0-6) % Baso % (Auto) 0.8 (0-2) % Absolute Neuts (auto) 7.5 (1.5-7.7) 10^3/ul Absolute Lymphs (auto) 2.5 (1.0-4.8) 10^3/ul Absolute Monos (auto) 0.5 (0-0.8) 10^3/ul Absolute Eos (auto) 0.1 (0-0.6) 10^3/ul Absolute Basos (auto) 0.1 (0-0.2) 10^3/ul Absolute Nucleated RBC 0.01 10^3/ul Nucleated RBC % 0.1 INR (Anticoag Therapy) 0.86 L (0.89-1.11) APTT 19.7 L (26.0-36.3) seconds Sodium 138 (133-145) mmol/L Potassium 4.2 (3.5-5.0) mmol/L Chloride 102 (101-111) mmol/L Carbon Dioxide 28 (22-32) mmol/L Anion Gap 8 (2-11) mmol/L BUN 10 (6-24) mg/dL Creatinine 0.98 H (0.51-0.95) mg/dL Est GFR ( Amer) 69.4 (>60) Est GFR (Non-Af Amer) 53.9 (>60) BUN/Creatinine Ratio 10.2 (8-20) Glucose 159 H (70-100) mg/dL Lactic Acid (0.5-2.0) mmol/L Calcium 10.4 H (8.6-10.3) mg/dL Total Bilirubin 0.70 (0.2-1.0) mg/dL AST 19 (13-39) U/L ALT 10 (7-52) U/L Alkaline Phosphatase 61 (34-104) U/L Troponin I 0.03 (<0.04) ng/mL Total Protein 6.4 (6.4-8.9) g/dL Albumin 3.8 (3.2-5.2) g/dL Globulin 2.6 (2-4) g/dL Albumin/Globulin Ratio 1.5 (1-3) Blood Type Antibody Screen 07/25/17 07/25/17 Range/Units 10:00 10:00 WBC (3.5-10.8) 10^3/ul RBC (4.0-5.4) 10^6/ul Hgb (12.0-16.0) g/dl Hct (35-47) % MCV (80-97) fL MCH (27-31) pg MCHC (31-36) g/dl RDW (10.5-15) % Plt Count (150-450) 10^3/ul MPV (7.4-10.4) um3 Neut % (Auto) (38-83) % Lymph % (Auto) (25-47) % [place] % (Auto) (1-9) % Eos % (Auto) (0-6) % Baso % (Auto) (0-2) % Absolute Neuts (auto) (1.5-7.7) 10^3/ul Absolute Lymphs (auto) (1.0-4.8) 10^3/ul Absolute Monos (auto) (0-0.8) 10^3/ul Absolute Eos (auto) (0-0.6) 10^3/ul Absolute Basos (auto) (0-0.2) 10^3/ul Absolute Nucleated RBC 10^3/ul Nucleated RBC % INR (Anticoag Therapy) (0.89-1.11) APTT (26.0-36.3) seconds Sodium (133-145) mmol/L Potassium (3.5-5.0) mmol/L Chloride (101-111) mmol/L Carbon Dioxide (22-32) mmol/L Anion Gap (2-11) mmol/L BUN (6-24) mg/dL Creatinine (0.51-0.95) mg/dL Est GFR ( Amer) (>60) Est GFR (Non-Af Amer) (>60) BUN/Creatinine Ratio (8-20) Glucose (70-100) mg/dL Lactic Acid 3.8 H* (0.5-2.0) mmol/L Calcium (8.6-10.3) mg/dL Total Bilirubin (0.2-1.0) mg/dL AST (13-39) U/L ALT (7-52) U/L Alkaline Phosphatase (34-104) U/L Troponin I (<0.04) ng/mL Total Protein (6.4-8.9) g/dL Albumin (3.2-5.2) g/dL Globulin (2-4) g/dL Albumin/Globulin Ratio (1-3) Blood Type O Positive Antibody Screen Pending Assess/Plan/Problems-Billing Assessment: - Patient Problems (1) Seizure Current Visit: Yes Status: Acute Code(s): R56.9 - UNSPECIFIED CONVULSIONS SNOMED Code(s): 21178316 Comment: She may be having a prolonged post-ictal phase. IV fluids, IV levetiracetam. I discussed the dx and prognosis with her daughter. (2) Hx of intracranial hemorrhage Current Visit: No Status: Chronic Priority: Medium Code(s): Z86.79 - PERSONAL HISTORY OF OTHER DISEASES OF THE CIRCULATORY SYSTEM SNOMED Code(s): 431741816 Comment: Residual L occipital encephalomalacia.
[2017-07-26] MEDS: D5W 1/2 NS KCl 20 Meq 1000 ML* 1,000 ML IV SCH (09:41)
[2017-07-26] MEDS: levETIRAcetam 500 MG IVPREMIX* 500 MG/100 ML BAG IV SCH ×2 (10:17→21:06)
[2017-07-26] MEDS: Aspirin SUPP* 300 MG PR SCH (10:17)
[2017-07-26] MEDS: cefTRIAXone VIAL(*) 1,000 MG in NS 0.9% 50 ML* 50 ML IVPB SCH (15:34)
--- NOTE | 2017-07-26 15:46 | PN ---
PROGRESS NOTE: DATE OF PROGRESS NOTE: 07/26/17 CURRENT LOCATION: Room 437, bed 1. Overnight, there have been no new issues. She is more awake and alert this morning, but continues to have some speech difficulties. She is moving her right side again, does not appear to have any focal motor deficits at this time. The family is at bedside and states she seems better but continues to have speech problems. They note that she had a similar episode about 2 years ago. At that time she was admitted and had altered mental status, speech difficulties that lasted approximately 72 hours and then she made a remarkable recovery. At that time there was consideration of stroke, although it was unclear and unlikely that she had a new stroke. 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 MRI last night was done, and showed the old hemorrhagic left parietal and occipital lobe infarct and some small lacunar infarcts in the cerebellar hemispheres, but no acute changes. MRI was reviewed. Carotid ultrasound showed no hemodynamically significant stenosis, but evidence of possible decreased cardiac output. Transthoracic echocardiogram done yesterday showed an ejection fraction of 60% to 65%, diastolic dysfunction, no patent foraminal ovale. Normal left ventricular chamber size. Normal left ventricular systolic function. Mild-to- moderate mitral regurgitation. Moderate tricuspid regurgitation. Mild-to- moderate pulmonary hypertension. [id number] pulmonic regurgitation. Mild increase in mixed valvular disease, velocity, since her last echocardiogram in December 2014. Vital signs: Temperature 98.5, pulse rate of 44, respiratory rate of 20, pulse oximetry 100%, blood pressure 140/53. Blood pressures have been generally stable in 140s to 150s over 50s. In general, she is a thin, frail female lying in her hospital bed. She is sleeping and snoring but awakens easily, her family is at the bed side. HEENT: She is normo-cephalic and atraumatic. Sclerae anicteric. Mucous membranes are moist. Oropharynx is clear. Neck is supple. Chest: Clear to auscultation bilaterally. Cardiovascular: Regular rate and rhythm. Abdomen: Nontender. Extremities: No cyanosis or edema. Neurologic Exam: She awakens, and she is alert. She is oriented to her name. Her speech is nonfluent, she has some word finding difficulty. She is able to piece together several words and answer some questions appropriately but remains confused. She does have some baseline confusion, but her family states that this is worse. Her pupils were equal, round and reactive to light. Her extraocular muscles are intact. Her visual barry appear full to confrontation. Face is symmetric. Tongue is midline. Oropharynx is symmetric. Her motor exam, she spontaneously moves all extremities antigravity. There is no significant drift in the upper or lower extremities. She has some resistance, appears symmetric at this time. She does withdraw to pain x4. DTRs are 2+ and symmetric in the upper and lower extremities. Babinski is downgoing bilaterally. Ismcpt-hg-[id number] rapid alternating movements were difficult to assess. Gait was not tested. Lab work includes a urine which is negative. Normal white count with some anemia,11.0; hematocrit of 32, platelet count 137. INR 0.91. Chemistry, her basic metabolic panel this morning significant for creatinine 1.14, triglycerides to 101, cholesterol 172, LDL 112, HDL 39.9. Prolactin of 69.5 yesterday. Ms. Cox is an 86-year-old female with a known history of dementia, also history of hemorrhagic left occipitoparietal infarct in the past as well as some cerebellar infarcts, had an episode yesterday when she was found semi- conscious starring. In the ER, she had a witnessed seizure, and responded well to Ativan. Per the family she was started on Keppra for about a year back in 2010, when she had her initial stroke for prophylaxis, never had a seizure. She was taken off of it after about a year and has been seizure free since that time. She did have an admission back in 2014, at that time she presented in a very similar manner with speech difficulties, confusion, weakness and it lasted for approximately 72 hours and then resolved. It is unclear whether she had a seizure at that time, but it does not appear that she had a stroke. At this point she has clear risk factor for seizures including the old hemorrhagic stroke as well as dementia. The MRI did not show any evidence of a new stroke. My suspicion at this point is that she has had a prolonged postictal period. She may have had some Johnnie's paralysis initially on arrival, but that seems to have improved. I suspect over the next day or so, her speech will continue to improve and her mental status will improve as well, although she she does have baseline dementia. I would continue the Keppra indefinitely for now. We may consider another medication as an outpatient as the family states that the Keppra in the past made her feel groggy, but for now we will continue this medication. She may also be having some initial reaction to the dose of Keppra , which can sometimes cause some somnolence initially. She will continue to be monitored on seizure precautions. She has Ativan p.r.n. At this point, she is on a baby aspirin for stroke prevention, skilled nursing can consider statin as well, although I would try to minimize her medications for now. I will continue to follow her closely and make further recommendations as necessary. Thank you for the opportunity to participate in her care. [id number]/[facility] #: [id number] ITZEL
--- NOTE | 2017-07-26 18:45 | ED ---
Joseph Bradley Thomas, scribed for Gerard Navarro MD on 07/25/17 at 1041 . Neurological HPI - HPI Summary HPI Summary: The patient is an 86 y/o F with a Hx of ischemic and hemorrhagic CVA who is BIBA with aphasia and decreased movement. The patient was last known well last night. During the night she was jabbering. Yesterday, she was talking normally. She is accompanied by two family members. LEVEL FIVE CAVEAT: UNABLE TO COMMUNICATE - History of Current Complaint Chief Complaint: EDNeurologicalDeficit Stated Complaint: POSS STROKE Time Seen by Provider: 07/25/17 09:57 Hx Obtained From: EMS Hx From Patient Unobtainable Due To: Other - Unable to communicate Onset/Duration: Started days ago - Last known well last night, Still Present Timing: Constant Pain Intensity: 0 Character: Other: - Aphasia, unable to move Aggravating: Nothing Alleviating: Nothing - Allergy/Home Medications Allergies/Adverse Reactions: Allergies Allergy/AdvReac Type Severity Reaction Status Date / Time No Known Allergies Allergy Verified 06/06/15 09:34 Home Medications: Home Medications Escitalopram (NF) [Lexapro 10 mg (NF)] 10 mg PO DAILY 07/25/17 [History Confirmed 07/25/17] Furosemide TAB* [Lasix TAB*] 10 mg PO DAILY 07/25/17 [History Confirmed 07/25/17 ] Simvastatin TAB(NF) [Zocor(NF)] 20 mg PO BEDTIME 07/25/17 [History Confirmed ] Timolol 0.5% OPTH.ERA* 1 drop OPHTHALMIC BEDTIME 07/26/17 [History Confirmed ] PMH/Surg Hx/FS Hx/Imm Hx Previously Healthy: No - LEVEL FIVE CAVEAT: UNABLE TO COMMUNICATE Endocrine/Hematology History: Denies: Hx Anticoagulant Therapy Cardiovascular History: Reports: Hx Hypercholesterolemia, Hx Hypertension Denies: Hx Pacemaker/ICD GI History: Reports: Hx Diverticulosis Musculoskeletal History: Reports: Hx Arthritis, Hx Osteoporosis Denies: Hx Rheumatoid Arthritis Sensory History: Denies: Hx Hearing Aid Neurological History: Reports: Hx Dementia, Other Neuro Impairments/Disorders - intracranial hemorrhage 2010 Psychiatric History: Denies: Hx Panic Disorder - Cancer History Hx Chemotherapy: No Hx Radiation Therapy: No - Surgical History Surgery Procedure, Year, and Place: CATARACT 2000, POLYPECTOMY 2003 - Immunization History Immunizations Up to Date: Yes Infectious Disease History: No Infectious Disease History: Denies: Traveled Outside the [place] in Last 30 Days - Family History Known Family History: Positive: None - Social History Alcohol Use: None Substance Use Type: Reports: None Smoking Status (MU): Never Smoked Tobacco Review of Systems - ROS Summary Review of Systems Summary: LEVEL FIVE CAVEAT: UNABLE TO COMMUNICATE Neurological: Other - Aphasia, unable to communicate All Other Systems Reviewed And Are Negative: No Physical Exam - Summary Physical Exam Summary: LEVEL FIVE CAVEAT: UNABLE TO COMMUNICATE The patient is an elderly female lying in the stretcher. She opens her eyes but is not responding. She does not follow commands. She has a right-sided weakness. Her lungs are clear to auscultation bilaterally. Cardiovascular system: S1 and S2 present, no murmurs appreciated. The abdomen is soft and positive bowel sounds. There is no edema in the extremities. Triage Information Reviewed: Yes Vital Signs On Initial Exam: Initial Vitals BP 162/88 07/25/17 09:58 Vital Signs Reviewed: Yes - Jen Coma Scale Coma Scale Total: 5 Diagnostics - Vital Signs Vital Signs Temp Pulse Resp BP Pulse Ox 07/25/17 10:22 69 15 99 07/25/17 10:06 195/82 07/25/17 10:00 82 17 179/85 96 07/25/17 09:59 98.5 F 73 14 179/85 100 07/25/17 09:58 162/88 - Laboratory Lab Results: Lab Results 07/25/17 07/25/17 07/25/17 Range/Units 10:00 10:00 10:00 WBC 10.7 (3.5-10.8) 10^3/ul RBC 3.91 L (4.0-5.4) 10^6/ul Hgb 12.3 (12.0-16.0) g/dl Hct 37 (35-47) % MCV 95 (80-97) fL MCH 32 H (27-31) pg MCHC 33 (31-36) g/dl RDW 14 (10.5-15) % Plt Count 219 (150-450) 10^3/ul MPV 9 (7.4-10.4) um3 Neut % (Auto) 69.8 (38-83) % Lymph % (Auto) 23.5 L (25-47) % [place] % (Auto) 4.9 (1-9) % Eos % (Auto) 1.0 (0-6) % Baso % (Auto) 0.8 (0-2) % Absolute Neuts (auto) 7.5 (1.5-7.7) 10^3/ul Absolute Lymphs (auto) 2.5 (1.0-4.8) 10^3/ul Absolute Monos (auto) 0.5 (0-0.8) 10^3/ul Absolute Eos (auto) 0.1 (0-0.6) 10^3/ul Absolute Basos (auto) 0.1 (0-0.2) 10^3/ul Absolute Nucleated RBC 0.01 10^3/ul Nucleated RBC % 0.1 INR (Anticoag Therapy) 0.86 L (0.89-1.11) APTT 19.7 L (26.0-36.3) seconds Sodium 138 (133-145) mmol/L Potassium 4.2 (3.5-5.0) mmol/L Chloride 102 (101-111) mmol/L Carbon Dioxide 28 (22-32) mmol/L Anion Gap 8 (2-11) mmol/L BUN 10 (6-24) mg/dL Creatinine 0.98 H (0.51-0.95) mg/dL Est GFR ( Amer) 69.4 (>60) Est GFR (Non-Af Amer) 53.9 (>60) BUN/Creatinine Ratio 10.2 (8-20) Glucose 159 H (70-100) mg/dL Lactic Acid (0.5-2.0) mmol/L Calcium 10.4 H (8.6-10.3) mg/dL Total Bilirubin 0.70 (0.2-1.0) mg/dL AST 19 (13-39) U/L ALT 10 (7-52) U/L Alkaline Phosphatase 61 (34-104) U/L Troponin I 0.03 (<0.04) ng/mL Total Protein 6.4 (6.4-8.9) g/dL Albumin 3.8 (3.2-5.2) g/dL Globulin 2.6 (2-4) g/dL Albumin/Globulin Ratio 1.5 (1-3) Blood Type Antibody Screen 07/25/17 07/25/17 Range/Units 10:00 10:00 WBC (3.5-10.8) 10^3/ul RBC (4.0-5.4) 10^6/ul Hgb (12.0-16.0) g/dl Hct (35-47) % MCV (80-97) fL MCH (27-31) pg MCHC (31-36) g/dl RDW (10.5-15) % Plt Count (150-450) 10^3/ul MPV (7.4-10.4) um3 Neut % (Auto) (38-83) % Lymph % (Auto) (25-47) % [place] % (Auto) (1-9) % Eos % (Auto) (0-6) % Baso % (Auto) (0-2) % Absolute Neuts (auto) (1.5-7.7) 10^3/ul Absolute Lymphs (auto) (1.0-4.8) 10^3/ul Absolute Monos (auto) (0-0.8) 10^3/ul Absolute Eos (auto) (0-0.6) 10^3/ul Absolute Basos (auto) (0-0.2) 10^3/ul Absolute Nucleated RBC 10^3/ul Nucleated RBC % INR (Anticoag Therapy) (0.89-1.11) APTT (26.0-36.3) seconds Sodium (133-145) mmol/L Potassium (3.5-5.0) mmol/L Chloride (101-111) mmol/L Carbon Dioxide (22-32) mmol/L Anion Gap (2-11) mmol/L BUN (6-24) mg/dL Creatinine (0.51-0.95) mg/dL Est GFR ( Amer) (>60) Est GFR (Non-Af Amer) (>60) BUN/Creatinine Ratio (8-20) Glucose (70-100) mg/dL Lactic Acid 3.8 H* (0.5-2.0) mmol/L Calcium (8.6-10.3) mg/dL Total Bilirubin (0.2-1.0) mg/dL AST (13-39) U/L ALT (7-52) U/L Alkaline Phosphatase (34-104) U/L Troponin I (<0.04) ng/mL Total Protein (6.4-8.9) g/dL Albumin (3.2-5.2) g/dL Globulin (2-4) g/dL Albumin/Globulin Ratio (1-3) Blood Type O Positive Antibody Screen Pending Result Diagrams: 07/26/17 04:58 07/26/17 08:25 Lab Statement: Any lab studies that have been ordered have been reviewed, and results considered in the medical decision making process. - Radiology CXR Xray Interpretation: Positive (See Comments) - Cardiomegaly, COPD, Scoliosis. ED physician has reviewed this report and agrees. Radiology Interpretation Completed By: Radiologist - CT CT Brain CT Interpretation: Positive (See Comments) - 1. NO ACUTE INTRACRANIAL PATHOLOGY. 2. 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 3. FINDINGS SUGGESTIVE OF CHRONIC SPHENOID SINUSITIS, WITH HIGH ATTENUATION MATERIAL WHICH MAY INDICATE A FUNGAL COMPONENT. THERE IS AN AIR-FLUID LEVEL WHICH MAY INDICATE ACUTE ON CHRONIC SINUSITIS. ED physician has reviewed this report and agrees. CT Interpretation Completed By: Radiologist - EKG 10:06 Cardiac Rate: NL - 71 BPM EKG Rhythm: Sinus Rhythm EKG Interpretation: No ST elevations. Q waves in II, III, AVF. TWI in V4, V6. NIH Scale - NIH Scale Level of Consciousness: Alert/Keenly Responsive Ask Patient the Month and His/Her Age: Neither Correct/Aphasic Ask Pt to Open/Close Eyes and Assistant Banquet Manager/Release Non-Paretic Hand: Neither Correctly Best Gaze (Only Horizontal Eye Movement): Normal Visual Field Testing: Bilateral Hemianopia Facial Paresis-Pt to Smile & Close Eyes or Grimace Symmetry: Normal/Symmetrical Motor Function - Right Arm: No Effort Against Conner Motor Function - Left Arm: No Drift-Holds 10 Seconds Motor Function - Right Leg: No Effort Against Conner Motor Function - Left Leg: No Drift-Holds 10 Seconds Limb Ataxia-Must be out of Proportion to Weakness Present: Present in Two Limbs Sensory (Use Pinprick to Test Arms/Legs/Trunk/Face): Pinprick Less on Affected Best Language (Describe Picture, Name Items): Mute/Global Aphasia Dysarthria (Read Several Words): Unintelligible or Mute Extinction and Inattention: Inattention Total Score: 22 Course/Dx - Course Assessment/Plan: The patient is an 86 y/o F with a Hx of ischemic and hemorrhagic CVA who is BIBA with aphasia and decreased movement. The patient was last known well last night. During the night she was jabbering. Yesterday , she was talking normally. She is accompanied by two family members. The patient came in with R-sided deficit, NIH score 22. We called a code correa. Right before the patient went to CT, she developed a seizure for which she was given Ativan. Head CT shows 1. NO ACUTE INTRACRANIAL PATHOLOGY. 2. 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 3. FINDINGS SUGGESTIVE OF CHRONIC SPHENOID SINUSITIS, WITH HIGH ATTENUATION MATERIAL WHICH MAY INDICATE A FUNGAL COMPONENT. THERE IS AN AIR-FLUID LEVEL WHICH MAY INDICATE ACUTE ON CHRONIC SINUSITIS. The patient was given ASA per rectum and at this time I discussed the case with Dr. Krueger who came to assess the patient. She recommends admission to the hospitalist services. She this the differential diagnosis is seizure vs. CVA. At this point, the patient is still with no change in mental status but she is stable. I discussed the case with Dr. Ty who accepts the patient for admission. - Differential Dx Differential Diagnoses Neuro: Positive: Cerebrovascular Accident, Seizure Disorder, Transient Ischemic Attack - Diagnoses Provider Diagnoses: Ischemic CVA - Physician Notifications Discussed Care Of Patient With: Kasia Krueger Time Discussed With Above Provider: 10:44 Instructed by Provider To: Other - I consulted with Dr. Krueger, neurology, regarding patient care. At 11:15, I consulted with Dr. Ty, hospitalist, who accepts the patient for admission to [facility]. - Critical Care Time Critical Care Time: 30-74 min Discharge - Discharge Plan Condition: Stable Disposition: ADMITTED TO [facility] documentation as recorded by the Joseph robles Thomas accurately reflects the service I personally performed and the decisions made by me, Gerard Navarro MD.
[2017-07-26] MEDS: Timolol 0.5% OPTH.SOL* BTL OPHTHALMIC SCH (21:06)
[2017-07-27] MEDS: D5W 1/2 NS KCl 20 Meq 1000 ML* 1,000 ML IV SCH (03:21)
[2017-07-27] MEDS: levETIRAcetam 500 MG IVPREMIX* 500 MG/100 ML BAG IV SCH (09:40)
[2017-07-27] MEDS: Aspirin SUPP* 300 MG PR SCH (09:43)
[2017-07-27] MEDS ORDERED: D5W 1/2 NS KCl 20 Meq 1000 ML* 1,000 ML IV SCH (13:04)
--- NOTE | 2017-07-27 13:12 | PN ---
Subjective Date of Service: 07/27/17 Interval History: SHe offers no c/o. Bot clear if she could make her needs known. Objective Active Medications: Acetaminophen (Tylenol Supp*) 650 mg NE Q4H PRN PRN Reason: FEVER/PAIN Aspirin (Aspirin Supp*) 300 mg NE DAILY [facility] Last Admin: 07/27/17 09:43 Dose: 300 mg Levetiracetam (Keppra Iv Premix*) 500 mg in 100 mls @ 400 mls/hr IV Q12H [facility] Last Admin: 07/27/17 09:40 Dose: 400 mls/hr Ceftriaxone Sodium 1,000 mg/ (Sodium Chloride) 50 mls @ 200 mls/hr IVPB Q24H [facility] Last Admin: 07/26/17 15:34 Dose: 200 mls/hr Potassium Chloride/Dextrose (D5w 1/2 Ns Kcl 20 Meq 1000 Ml*) 1,000 mls @ 50 mls /hr IV PER RATE [facility] Ondansetron HCl (Zofran Inj*) 4 mg IV Q6H PRN PRN Reason: NAUSEA Timolol Maleate (Timoptic 0.5% Opth*) 1 drop OPHTHALMIC BEDTIME [facility] Last Admin: 07/26/17 21:06 Dose: 1 drop Vital Signs 07/26/17 07/26/17 07/26/17 15:27 19:29 20:00 Temperature 97.6 F 97.3 F Pulse Rate 54 60 Respiratory 16 16 20 Rate Blood Pressure 153/61 191/80 (mmHg) O2 Sat by Pulse 100 100 Oximetry 07/26/17 07/26/17 07/27/17 21:00 23:49 03:58 Temperature 97.1 F Pulse Rate 46 Respiratory 16 Rate Blood Pressure 165/78 157/55 (mmHg) O2 Sat by Pulse 100 100 Oximetry 07/27/17 07/27/17 07/27/17 04:09 04:24 07:39 Temperature 97.2 F 97.4 F Pulse Rate 59 50 Respiratory 16 18 Rate Blood Pressure 177/65 166/78 160/70 (mmHg) O2 Sat by Pulse 100 100 Oximetry 07/27/17 07/27/17 08:00 11:42 Temperature 97.6 F Pulse Rate 58 Respiratory 20 20 Rate Blood Pressure 174/71 (mmHg) O2 Sat by Pulse 100 Oximetry Oxygen Devices in Use Now: Nasal Cannula Appearance: Alert, sitting up in bed. In good spirits, engaged with her visitors. Looks comfortable. Neck: NL Appearance and Movements; NL JVP, No Thyroid Enlargement, Masses Extremities: No Edema, No Clubbing, Cyanosis, - Neurological: NL Sensation - Answers some questions correctly. Not fully oriented. No tremor. Result Diagrams: 07/26/17 04:58 07/26/17 08:25 Additional Lab and Data: Lab Results 07/25/17 07/25/17 07/25/17 Range/Units 10:00 10:00 10:00 WBC 10.7 (3.5-10.8) 10^3/ul RBC 3.91 L (4.0-5.4) 10^6/ul Hgb 12.3 (12.0-16.0) g/dl Hct 37 (35-47) % MCV 95 (80-97) fL MCH 32 H (27-31) pg MCHC 33 (31-36) g/dl RDW 14 (10.5-15) % Plt Count 219 (150-450) 10^3/ul MPV 9 (7.4-10.4) um3 Neut % (Auto) 69.8 (38-83) % Lymph % (Auto) 23.5 L (25-47) % [place] % (Auto) 4.9 (1-9) % Eos % (Auto) 1.0 (0-6) % Baso % (Auto) 0.8 (0-2) % Absolute Neuts (auto) 7.5 (1.5-7.7) 10^3/ul Absolute Lymphs (auto) 2.5 (1.0-4.8) 10^3/ul Absolute Monos (auto) 0.5 (0-0.8) 10^3/ul Absolute Eos (auto) 0.1 (0-0.6) 10^3/ul Absolute Basos (auto) 0.1 (0-0.2) 10^3/ul Absolute Nucleated RBC 0.01 10^3/ul Nucleated RBC % 0.1 INR (Anticoag Therapy) 0.86 L (0.89-1.11) APTT 19.7 L (26.0-36.3) seconds Sodium 138 (133-145) mmol/L Potassium 4.2 (3.5-5.0) mmol/L Chloride 102 (101-111) mmol/L Carbon Dioxide 28 (22-32) mmol/L Anion Gap 8 (2-11) mmol/L BUN 10 (6-24) mg/dL Creatinine 0.98 H (0.51-0.95) mg/dL Est GFR ( Amer) 69.4 (>60) Est GFR (Non-Af Amer) 53.9 (>60) BUN/Creatinine Ratio 10.2 (8-20) Glucose 159 H (70-100) mg/dL Lactic Acid (0.5-2.0) mmol/L Calcium 10.4 H (8.6-10.3) mg/dL Total Bilirubin 0.70 (0.2-1.0) mg/dL AST 19 (13-39) U/L ALT 10 (7-52) U/L Alkaline Phosphatase 61 (34-104) U/L Troponin I 0.03 (<0.04) ng/mL Total Protein 6.4 (6.4-8.9) g/dL Albumin 3.8 (3.2-5.2) g/dL Globulin 2.6 (2-4) g/dL Albumin/Globulin Ratio 1.5 (1-3) Blood Type Antibody Screen 07/25/17 07/25/17 Range/Units 10:00 10:00 WBC (3.5-10.8) 10^3/ul RBC (4.0-5.4) 10^6/ul Hgb (12.0-16.0) g/dl Hct (35-47) % MCV (80-97) fL MCH (27-31) pg MCHC (31-36) g/dl RDW (10.5-15) % Plt Count (150-450) 10^3/ul MPV (7.4-10.4) um3 Neut % (Auto) (38-83) % Lymph % (Auto) (25-47) % [place] % (Auto) (1-9) % Eos % (Auto) (0-6) % Baso % (Auto) (0-2) % Absolute Neuts (auto) (1.5-7.7) 10^3/ul Absolute Lymphs (auto) (1.0-4.8) 10^3/ul Absolute Monos (auto) (0-0.8) 10^3/ul Absolute Eos (auto) (0-0.6) 10^3/ul Absolute Basos (auto) (0-0.2) 10^3/ul Absolute Nucleated RBC 10^3/ul Nucleated RBC % INR (Anticoag Therapy) (0.89-1.11) APTT (26.0-36.3) seconds Sodium (133-145) mmol/L Potassium (3.5-5.0) mmol/L Chloride (101-111) mmol/L Carbon Dioxide (22-32) mmol/L Anion Gap (2-11) mmol/L BUN (6-24) mg/dL Creatinine (0.51-0.95) mg/dL Est GFR ( Amer) (>60) Est GFR (Non-Af Amer) (>60) BUN/Creatinine Ratio (8-20) Glucose (70-100) mg/dL Lactic Acid 3.8 H* (0.5-2.0) mmol/L Calcium (8.6-10.3) mg/dL Total Bilirubin (0.2-1.0) mg/dL AST (13-39) U/L ALT (7-52) U/L Alkaline Phosphatase (34-104) U/L Troponin I (<0.04) ng/mL Total Protein (6.4-8.9) g/dL Albumin (3.2-5.2) g/dL Globulin (2-4) g/dL Albumin/Globulin Ratio (1-3) Blood Type O Positive Antibody Screen Pending Microbiology and Other Data: Microbiology 07/25/17 16:30 Urine Culture - Preliminary Urine Escherichia Coli Assess/Plan/Problems-Billing Assessment: - Patient Problems (1) Seizure Current Visit: Yes Status: Acute Code(s): R56.9 - UNSPECIFIED CONVULSIONS SNOMED Code(s): 04801890 Comment: She is having a prolonged post-ictal phase. IV fluids will stop 8 PM 08/27. CHange to oral levetiracetam PM 07/27. I discussed the dx and prognosis with her daughter. OT/PT ordered, might need STR. Family would want [facility] for STR. (2) Hx of intracranial hemorrhage Current Visit: No Status: Chronic Priority: Medium Code(s): Z86.79 - PERSONAL HISTORY OF OTHER DISEASES OF THE CIRCULATORY SYSTEM SNOMED Code(s): 023957981 Comment: Residual L occipital encephalomalacia. (3) UTI (urinary tract infection) Current Visit: Yes Status: Acute Comment: > 100,000 E. coli. Sens pending. Likely can change to oral antibiotic 07/28. (4) Dyslipidemia Current Visit: No Status: Chronic Priority: Medium Code(s): E78.5 - HYPERLIPIDEMIA, UNSPECIFIED SNOMED Code(s): 988050007 Comment: Resume simvastatin.
[2017-07-27] MEDS: cefTRIAXone VIAL(*) 1,000 MG in NS 0.9% 50 ML* 50 ML IVPB SCH (15:12)
--- NOTE | 2017-07-27 19:52 | RAD ---
INDICATION: Head injury. COMPARISON: Comparison is made with a prior CT of the brain from July 25, 2017. TECHNIQUE: Contiguous axial sections of the brain were obtained from the skull base to the vertex without contrast. FINDINGS: The ventricles, cisterns and sulci are enlarged consistent with diffuse atrophy. There are small areas of decreased density in the subcortical and periventricular white matter suggestive of mild chronic small vessel ischemic changes. There is a focal area of encephalomalacia in the left occipital lobe which is unchanged consistent with an old infarct. No other focal abnormalities or mass effect are seen. There is no evidence for hemorrhage. No fracture is seen. There is near complete opacification of the sphenoid sinus on the right side. The visualized portion of the paranasal sinuses and mastoid air cells otherwise appear clear. These findings are unchanged. IMPRESSION: 1. NO EVIDENCE FOR ACUTE INTRACRANIAL ABNORMALITY. 2. OLD LEFT OCCIPITAL LOBE INFARCT.
[2017-07-27] MEDS ORDERED: levETIRAcetam TAB* 500 MG PO SCH (21:00)
[2017-07-27] MEDS: Atorvastatin* 10 MG TAB PO SCH (21:26)
[2017-07-27] MEDS: Timolol 0.5% OPTH.SOL* BTL OPHTHALMIC SCH (21:26)
--- NOTE | 2017-07-27 22:19 | PN ---
PROGRESS NOTE: LOCATION: She is 437, bed 1. DATE OF PROGRESS NOTE: 07/27/17 SUBJECTIVE: Overnight, she has done well. No new issues. Continues to slowly improve. She is speaking more and she is moving her right arm more and the family feels that she is making a slow, steady improvement although she is not back to her baseline and remains confused. Per the nurse, there was no acute distress overnight. No seizure activity. OBJECTIVE: Vital signs: Temp of 97.4, pulse of 50, respiratory rate of 18, O2 sat of 100%. She is 160/70. In general, she has been in the 150s to 170s/60s to 70s. She is a well-developed female, lying in her hospital bed, very pleasant , smiling. All family is at the bedside. HEENT: She is normocephalic, atraumatic. Sclerae anicteric. Mucus membranes are slightly dry. Oropharynx is clear. Neck: Supple. Chest: Clear to auscultation bilaterally. Cardiovascular: Regular rate and rhythm. Abdomen: Nontender. Extremities: There is no significant clubbing, cyanosis, or edema. Neurologic exam: She is awake. She is alert. She is oriented to person only. Her speech is dysarthric , but she is able to piece together several-word sentences making more sense naming her children, although she is confused about the ages. Cranial nerves: Her pupils are equally round and reactive to light. Extraocular muscles are intact. Visual barry are difficult to assess. Face appears generally symmetric. Tongue is midline. Motor exam: She spontaneously moves all extremities antigravity, no drift, generally 4+/5 throughout. DTRs are difficult to assess this morning. Equivocal Babinski. She does withdraw to pain x4. She follows simple commands. LABORATORIES: New laboratories include her urine did grow E. coli. She is on antibiotics. No other new labs this morning. ASSESSMENT AND PLAN: Ms. Cox is an 86-year-old female with a known history of hemorrhagic stroke in the past, presented to the hospital with a seizure and likely some Johnnie paralysis as well as some unmasking of her old symptoms, initially was having right hemiparesis, but that has since improved. She continues to make a slow improvement. I suspect that her symptoms are slow to improve because of her underlying dementia because of her underlying stroke and because of the recent seizure, but will likely take her more time than normal although I did discuss with the family that it is unclear what baseline she will return to and time will tell. The family is comfortable with her going to rehab upon discharge, likely [facility] for several weeks to better evaluate her functional status. At this point, I am going to have a bedside swallow study done and then we can advance her diet. I will go ahead and write for soft mechanical and then we can get Speech Therapy to evaluate tomorrow. I will continue to follow her. [id number]/[facility] #: [id number] ITZEL
[2017-07-28] MEDS: levETIRAcetam LIQ* 500 MG/5 ML UDC PO SCH ×2 (09:22→21:57)
[2017-07-28] MEDS: Aspirin SUPP* 300 MG PR SCH (09:55)
--- NOTE | 2017-07-28 13:51 | PN ---
Subjective Date of Service: 07/28/17 Interval History: HOSPITALIST PROGRESS NOTE Patient seen and examined at bedside. She offers no complaints at this time. Wants to take a nap now. Family History: Unchanged from Admission Social History: Unchanged from Admission Past Medical History: Unchanged from Admission Objective Active Medications: Acetaminophen (Tylenol Supp*) 650 mg MN Q4H PRN PRN Reason: FEVER/PAIN Aspirin (Aspirin Supp*) 300 mg MN DAILY [facility] Last Admin: 07/28/17 09:55 Dose: 300 mg Atorvastatin Calcium (Lipitor*) 10 mg PO BEDTIME [facility] Last Admin: 07/27/17 21:26 Dose: 10 mg Ceftriaxone Sodium 1,000 mg/ (Sodium Chloride) 50 mls @ 200 mls/hr IVPB Q24H [facility] Last Admin: 07/27/17 15:12 Dose: 200 mls/hr Levetiracetam (Keppra Liq*) 500 mg PO BID [facility] Last Admin: 07/28/17 09:22 Dose: 500 mg Ondansetron HCl (Zofran Inj*) 4 mg IV Q6H PRN PRN Reason: NAUSEA Timolol Maleate (Timoptic 0.5% Opth*) 1 drop OPHTHALMIC BEDTIME [facility] Last Admin: 07/27/17 21:26 Dose: 1 drop Vital Signs 07/28/17 07/28/17 07/28/17 10:42 11:21 11:24 Temperature 97.6 F 97.6 F Pulse Rate 67 67 Respiratory 16 16 16 Rate Blood Pressure 142/70 142/70 (mmHg) O2 Sat by Pulse 97 97 Oximetry Appearance: Pleasantly confused elderly lady lying in bed in NAD. Eyes: No Scleral Icterus Ears/Nose/Mouth/Throat: Mucous Membranes Moist Neck: Trachea Midline Respiratory: Symmetrical Chest Expansion and Respiratory Effort, Clear to Auscultation Cardiovascular: RRR - Normal S1 and S2 Abdominal: NL Sounds; No Tenderness; No Distention Neurological: - - AAOx1 (self only), LUTZ, power is equal bilaterally Result Diagrams: 07/26/17 04:58 07/26/17 08:25 Microbiology and Other Data: Microbiology 07/25/17 16:30 Urine Culture - Preliminary Urine Escherichia Coli Assess/Plan/Problems-Billing Assessment: Mrs. Cox is an 86yo F with PMH of ICH/CVA, HTN, HLD, who presented to ED with altered MS and right hemiparesis, felt to be secondary to seizure with Johnnie 's paralysis. - Patient Problems (1) Seizure Comment: - Patient has known h/o ICH with MRI showing stigmata of prior hemorrhage at hte left parietal and occipital lobes. - Seizure threshold likely lowered by UTI. - Presentation compatible with prolonged post ictal state and Johnnie's paralysis. - Neuro input appreciated - continue Keppra. (2) UTI (urinary tract infection) Comment: - Urine culture grew > 100,000 pansensitive E. coli. - Change to PO Ceftin. (3) Dyslipidemia Comment: - Continue statin. (4) DVT prophylaxis Comment: - SCDs to bilateral LE. (5) DNR (do not resuscitate) Status and Disposition: Inpatient. Plan for SNF placement for rehab.
[2017-07-28] MEDS ORDERED: Acetaminophen TAB* 325 MG PO PRN (14:01)
--- NOTE | 2017-07-28 14:37 | PN ---
PROGRESS NOTE: DATE OF PROGRESS NOTE: 07/28/17. CURRENT LOCATION: Room 437, bed 1. Overnight, no major issues. She did suffer a mild fall yesterday, no reported head trauma. She had a CT of the head reviewed which showed no new acute issues. No evidence of bleeding. The old infarct was still noted. She has been cleared to eat and has been eating, remains pleasantly confused at this point, but otherwise doing well. At times she does get agitated and frustrated , but is redirectable. Vital Signs: Temperature of 97.4, blood pressure 170/70, ranging from 147/68, 138/62, to 131/73, pulse rate of 62, respiratory rate 16, pulse ox 98%. In general, she is a well-nourished, well-developed female sitting in her hospital bed, head is approximately at 60 degrees. She is pleasant, well-dressed, well- groomed. HEENT: She is normocephalic, atraumatic. Sclerae are anicteric. Mucous membranes are moist. Oropharynx is clear. Nares are patent. Neck is supple. Chest is clear to auscultation bilaterally. Cardiovascular: Regular rate and rhythm. Abdomen is nontender. Extremities: No significant clubbing or cyanosis. Trace edema in the right leg greater than the left leg. On neurologic exam, she is awake, she is alert. She is oriented to person only. Her speech is fluent this morning. She is able to communicate more, but her repetition is affected. She is dysarthric at times and has some paraphasic errors as well. Her face is symmetric. Pupils are equal, round, and reactive. Extraocular muscles are intact. Visual barry are difficult to assess at this time, but she does blink to threat. Tongue is midline. She is spontaneously moving all extremities antigravity with 4 to 4+/5 resistance throughout. No focal weakness. No drift noted. DTR's are 1+ and symmetric at the patella bilaterally. 1+ in the upper extremities, withdraws to Babinski bilaterally. She does withdraw to pain x4 and states that her sensation is intact to light touch in the lower and upper extremities. No resting tremor is noted. [id number] is difficult. Gait was not tested. Lab work none this morning. CT of the head is noted above. Ms. Cox is an 86-year-old female with a history of an old stroke admitted to the hospital with a seizure initially, some right sided weakness, and altered mental status, but over the last few days, she continued to improve, this morning she seems more verbal to me. Her speech is more clear, although she continues to have some issues. She is now eating, tolerating her diet. She has been following commands. She did try to get up yesterday, the bed alarm was not on and she fell, but there is no reported head trauma and she seems to be fine this morning, no complaints. Repeat CT of the head showed no new issues. She has had no further seizure activity since admission. At this point, she will need to be discharged home on Keppra 500 mg p.o. b.i.d. for seizure prevention. I suspect the source of her seizure was from her old stroke. Her right sided weakness is now resolved and there is likely some Johnnie' s paralysis with possible unmasking of her old symptoms. She does have a urinary tract infection and is being treated for that. I will continue her aspirin, her statin, blood pressure control. I can follow her up as an outpatient on discharge, but at this point I have no new recommendations. [id number]/[facility] #: [id number] ITZEL
[2017-07-28] MEDS: ceFUROXime TAB(*) 250 MG PO SCH ×2 (15:22→21:56)
[2017-07-28] MEDS: Atorvastatin* 10 MG TAB PO SCH (21:57)
[2017-07-28] MEDS: Timolol 0.5% OPTH.SOL* BTL OPHTHALMIC SCH (21:57)
[2017-07-29 09:16] LABS: Hematocrit 33 % (35-47); Hemoglobin 11.1 g/dl (12.0-16.0); Mean Corpuscular HGB Conc 33 g/dl (31-36); Mean Corpuscular Hemoglobin 32 pg (27-31); Mean Corpuscular Volume 95 fL (80-97); Mean Platelet Volume 9 um3 (7.4-10.4); Red Blood Count 3.53 10^6/ul (4.0-5.4); Red Cell Distribution Width 13 % (10.5-15); White Blood Count 6.8 10^3/ul (3.5-10.8)
[2017-07-29 09:24] LABS: BUN/Creatinine Ratio 11.3 (8-20); Calcium 9.7 mg/dL (8.6-10.3); EGFR African American 87.7 (>60); EGFR Non-African American 68.2 (>60); Potassium 3.3 mmol/L (3.5-5.0)
[2017-07-29] MEDS: levETIRAcetam LIQ* 500 MG/5 ML UDC PO SCH ×2 (09:31→22:39)
[2017-07-29] MEDS: ceFUROXime TAB(*) 250 MG PO SCH ×2 (09:31→22:40)
--- NOTE | 2017-07-29 10:57 | DS ---
CC: Dr. Klein; Dr. Varinder Jacobo; [facility]; Dr Short. DATE OF ADMISSION: 07/25/2017. DATE OF DISCHARGE: 07/29/2017. DISCHARGE DIAGNOSES: 1. Seizure. 2. 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 3. Prolonged postictal state. 4. E. coli urinary tract infection. 5. Mild hypokalemia. 6. Urinary retention. SECONDARY DIAGNOSES: 1. CVA. 2. Intracranial hemorrhage. 3. Hypertension. 4. Hyperlipidemia. 5. Osteoarthritis. 6. Diastolic congestive heart failure. 7. Diverticulosis. MEDICATIONS: 1. Omeprazole 40 mg p.o. b.i.d. 2. Timolol one drop to both eyes at bedtime. 3. Furosemide 10 mg p.o. daily. 4. Simvastatin 20 mg p.o. at bedtime. 5. Escitalopram 10 mg p.o. daily. New medications: 1. Keppra 500 mg p.o. b.i.d. 2. Cefuroxime 250 mg p.o. b.i.d. 3. Acetaminophen 650 mg p.o. q.6 hours prn pain or fever. 4. Aspirin 81 mg p.o. daily. HOSPITAL COURSE: Ms. Cox is an 86-year-old lady with a past medical history as stated above who presented to the emergency room on July 25 with complaints of altered mental status, seizures and right-sided weakness. Ms. Cox was found by her daughter to be confused and the daughter noted that the patient was shaking, mumbling and choking and appeared to have been having a seizure. 911 was called. She was brought in to the hospital and initially she was unresponsive. As per HPI, in route to the hospital, the patient had another episode of what appeared to be grand mal seizure. She was also noted to have right-sided hemiparesis. For more details about her presentation, I refer you to her history and physical. The patient was admitted for further work-up of her seizures. CT of the brain without contrast showed no acute intracranial pathology, evidence of remote left [employer] territory stroke and findings suggestive of chronic sphenoid sinusitis. Chest x-ray showed cardiomegaly, COPD, and scoliosis. The patient was seen in consultation by Neurology (Dr. Kasia Krueger) and her impression was that the patient has a history of both ischemic and hemorrhagic strokes in the past who presented with new onset right hemiparesis as well as seizure. The differential includes new left MCA territory stroke complicated by seizure versus seizure complicated by postictal Johnnie's paralysis. She recommended EEG and MRI of the brain. She felt that the patient was not a TPA candidate due to her history of hemorrhagic strokes as well as her last known normal was the night before admission. MRI of the brain without contrast showed stigmata of prior hemorrhagic infarct at the left parietal and occipital lobes, multiple small lacunar infarct at the cerebellar hemispheres, negative for stigmata of acute or subacute ischemia, no mass effect. Carotid Doppler showed atheromatous disease, no hemodynamically significant stenosis of the right internal carotid or left, there was flow velocities within the common carotid arteries which may reflect decreased cardiac output. Transthoracic echocardiogram showed an ejection fraction of 60 to 65 percent with normal left ventricular systolic function. Flow was not demonstrated by color Doppler. There was mild to moderate pulmonary hypertension, moderate tricuspid regurgitation. EEG was an abnormal EEG due to the presence of diffuse background slowing, a slow posterior rhythm which is intermittently observable in the right hemisphere , but not present in the left hemisphere. This finding is suggest of a mild to moderate nonspecific diffuse encephalopathy which effects the left hemisphere to a greater degree. There are no epileptiform abnormalities or seizures noted during this recording. The patient was seen in follow-up by Neurology (Dr. Jacobo) and as per his report , the patient has a history of dementia, history of hemorrhagic stroke and presented with an episode of seizure. As per family, the patient was Keppra in 2010 when she had her initial stroke and that drug had been discontinued a year later as she had been seizure free the whole time. There was another admission in 2014 that could suggest seizure, but not confirmed. His suspicious was that the patient had a prolonged postictal period with some Johnnie's paralysis initially on arrival. He recommended continuation of Keppra and seizure precautions. At that point, the patient's urine culture also grew E. coli and she was started on Ceftriaxone for UTI treatment. Dr. Jacobo felt that her symptoms were slow to improve because of her underlying dementia, underlying stroke, recent seizure, and urinary tract infection. His recommendation was to continue Keppra 500 mg p.o. b.i.d. Her mental status seems to be very close to her baseline. Dr. Jacobo also thinks her history of hemorrhagic CVA is remote enough that she could be started on low dose aspirin for secondary prevention.Her right-sided hemiparesis has resolved and the patient is medically stable to be discharged to [facility] for rehabilitation and to follow -up with Dr. Jacobo as an outpatient. Also of note, patient was found to have urinary retention with residuals around 400-500mls. She does have an urinary tract infection at this time, and failed spontaneous void trial. Discussed with Urology: plan to discharge with Frazier catheter and evaluate as outpatient after UTI treatment is completed. Daughter is aware of medication changes and plan for Frazier catheter and Urology follow up as outpatient. PHYSICAL EXAMINATION: General: The patient is a pleasantly confused elderly lady, lying in bed in no acute distress. Vital Signs: Temperature 97.6, heart rate 72, respiratory rate 18, oxygen saturation 96 percent on room air, blood pressure 127/64. CVS: Normal S1, S2. Regular rate and rhythm. Chest: Breath sounds bilaterally with no added sounds. Abdomen: Soft. Bowel sounds are present. Neuro: She is alert, awake, and oriented times one to self only. Able to move all four extremities. DIET: Regular diet with mechanical ground solids and thin liquids. ACTIVITY: PT and OT as tolerated. DISPOSITION: To [facility]. STATUS WHILE IN THE HOSPITAL: Inpatient. Please keep in mind that this is a summarized version of this patient's hospital stay. If you need more information, please feel free to call me at ( [phone] or please obtain the full medical records. Approximately 45 minutes were spent to complete this discharge. [id number]/[facility] #: [id number] ITZEL
[2017-07-29] MEDS ORDERED: Polyethylene Glycol 3350* 17 GM PACKET PO PRN (10:58)
[2017-07-29] MEDS: Potassium Chloride LIQUID* 20 MEQ PACKET PO SCH (11:20)
[2017-07-29] MEDS ORDERED: Magnesium Hydroxide LIQ* 30 ML UDC PO PRN (12:11)
[2017-07-29] MEDS ORDERED: Sodium Phosphate ADULT ENEMA* 118 ml bottle PR PRN (12:11)
[2017-07-29] MEDS: Timolol 0.5% OPTH.SOL* BTL OPHTHALMIC SCH (22:39)
[2017-07-29] MEDS: Atorvastatin* 10 MG TAB PO SCH (22:40)
--- NOTE | 2017-07-29 22:54 | PN ---
PROGRESS NOTE: DATE OF PROGRESS NOTE: 07/29/17 CURRENT LOCATION: Room 417, bed 1. SUBJECTIVE: Overnight, there were no major new issues. The nurse noted that she might have some mild right-sided lower extremity weakness and then she had some residual in her bladder, but the note this morning state that she had approximately 103 mL in her bladder at 8:30 and urine output is being monitored. She has had no seizure activity reported. She is somnolent, but awakens easily and follows my commands. She is not in any distress at this time. OBJECTIVE: Vital Signs: Temperature of 97.6, pulse of 73, respiratory rate of 18, pulse ox 96%, blood pressure 127/64. In general, she is a well-developed female, in no acute distress, lying in her hospital bed. She is sleeping, but easily awakens. HEENT, she is normocephalic, atraumatic. Sclerae anicteric. Mucous membranes are moist. Oropharynx is clear. Neck is supple. Chest: Clear to auscultation bilaterally. Cardiovascular is regular rate and rhythm. Abdomen is nontender. Extremities: No significant clubbing, cyanosis, or edema. Neurologic: She is sleeping, but awakens easily and remains awake throughout the examination. She is oriented to person only. Her speech is fluent. It has improved today from yesterday, although she still has a paucity of speech. She will string together words to form a short sentence and she does answer appropriately. Her dysarthria is improved, although at times she has some paraphasic errors. Cranial Nerves: Pupils are equal, round, and reactive to light. Extraocular muscles appear intact. Visual barry are difficult to assess due to her underlying dementia. Face appears generally symmetric. Tongue is midline. Palate symmetric. She is spontaneously moving all extremities, antigravity. She had some mild drift in her right upper extremity, but generally good strength bilateral in the upper extremities and symmetric. In the lower extremities, right hip flexor is 5-/5. Otherwise, she is 5/5 throughout. If there is weakness in the right lower extremity, it is subtle and proximal. She has no significant tremors noted, no resting tremors, but finger- to-nose and rapid alternating movements were difficult to assess as were DTRs due to positioning. Gait was not tested at this time. LABORATORY DATA: She has no lab work pending this morning. MEDICATIONS: Her medications include: 1. Tylenol. 2. Lipitor. 3. Ceftin. 4. Keppra 500 mg p.o. b.i.d. 5. Zofran. 6. Timolol drops. She has no new studies done overnight. ASSESSMENT AND PLAN: Ms. Cox is an 86-year-old female with a known history of left parieto-occipital hemorrhage in the past with dementia as well, admitted with right-sided weakness and seizure. The weakness is likely unmasking of her old stroke symptoms as well as some Johnnie paralysis. It is improved dramatically since her admission as has her mentation and her speech. While she remains very confused and while she has some difficulty with her speech, it is improving every day. At this point, she needs to stay on her Keppra for seizure prevention. I would not change the dose as she has been stable on it. They are looking into some patient step down rehab for her for the next several weeks to help her regain her strength, her balance, her gait if possible. I did talk with the family several days ago and they understand that at times when someone has significant dementia, they do not always return to baseline. With that said, I think it is too early to tell how much she will recover. Physical therapy, occupational therapy, and speech therapy are all on board. She is eating without difficulty. I will sign off for now, but I would be happy to see her as an outpatient upon discharge in 4 to 6 weeks. At that point, we can discuss further treatment of her dementia, although at this point, I would not add any medications. [id number]/[facility] #: [id number] ITZEL
[2017-07-30 07:50] VITALS: BP 121/59
[2017-07-30] MEDS: levETIRAcetam LIQ* 500 MG/5 ML UDC PO SCH (09:54)
[2017-07-30] MEDS: ceFUROXime TAB(*) 250 MG PO SCH (09:55)
[2017-07-30] MEDS: Potassium Chloride LIQUID* 20 MEQ PACKET PO SCH (09:55)
== END 2017-07-30 13:10 | DRG 101 ==
LOC: ED 09:52 → MEDTELE 11:22 → MED 07-28 10:55
PROVIDERS: ADMIT Internal Medicine; ATTEND Internal Medicine
PROC: 4A00X4Z Measurement of Central Nervous Electrical Activity, External Approach (ICD-10-PCS; principal; 2017-07-25)
DX: G40.409 Other generalized epilepsy and epileptic syndromes, not intractable, without status epilepticus (principal); G81.91 Hemiplegia, unspecified affecting right dominant side; I27.20 Pulmonary hypertension, unspecified; I50.30 Unspecified diastolic (congestive) heart failure; N39.0 Urinary tract infection, site not specified; I11.0 Hypertensive heart disease with heart failure; F03.90 Unspecified dementia, unspecified severity, without behavioral disturbance, psychotic disturbance, mood disturbance, and anxiety; Z66 Do not resuscitate; E78.00 Pure hypercholesterolemia, unspecified; M19.90 Unspecified osteoarthritis, unspecified site; M81.0 Age-related osteoporosis without current pathological fracture; R29.722 NIHSS score 22; G83.84 Todd's paralysis (postepileptic); B96.20 Unspecified Escherichia coli [E. coli] as the cause of diseases classified elsewhere; E87.6 Hypokalemia; R33.9 Retention of urine, unspecified; I08.1 Rheumatic disorders of both mitral and tricuspid valves; K57.90 Diverticulosis of intestine, part unspecified, without perforation or abscess without bleeding; J32.3 Chronic sphenoidal sinusitis; J44.9 Chronic obstructive pulmonary disease, unspecified; M41.9 Scoliosis, unspecified; Z79.82 Long term (current) use of aspirin; Z86.73 Personal history of transient ischemic attack (TIA), and cerebral infarction without residual deficits; Z23 Encounter for immunization; Z98.49 Cataract extraction status, unspecified eye
CPT/HCPCS: 36415; 70450; 70551; 71010; 80048; 80053; 80061; 81003; 83036; 83605; 84146; 84484; 85025; 85610; 85730; 86850; 86900; 86901; 87077; 87086; 87186; 90686; 93005; 93306; 93880; 95819; A9270-GY; G8996-GN-CK; G8997-GN-CK; G8998-GN-CK; J0696; J2060; J2543

== ENCOUNTER 2018-11-27 21:21 | Emergency (ER) | payer MEDICARE ==
[2018-11-27] MEDS ORDERED: NS 0.9% 1000 ML** 1,000 ML IV ONE (21:39)
[2018-11-27 22:28] LABS: ABS Basophils 0.1 10^3/ul (0-0.2); ABS Eosinophils 0 10^3/ul (0-0.6); ABS Lymphocytes 2.7 10^3/ul (1.0-4.8); ABS Monocytes 0.7 10^3/ul (0-0.8); ABS Nucleated RBC 0 10^3/ul; Eosinophil % 0.4 %; Hematocrit 37 % (35-47); Hemoglobin 12.3 g/dl (12.0-16.0); Lymphocyte % 25.9 %; Mean Corpuscular HGB Conc 33 g/dl (31-36); Mean Corpuscular Hemoglobin 32 pg (27-31); Mean Corpuscular Volume 97 fL (80-97); Mean Platelet Volume 8.4 fL (7.4-10.4); Nucleated Red Blood Cells % 0; Platelet Count 241 10^3/ul (150-450); Red Blood Count 3.85 10^6/ul (4.00-5.40); Red Cell Distribution Width 14 % (10.5-15); White Blood Count 10.6 10^3/ul (3.5-10.8)
--- NOTE | 2018-11-27 22:29 | ED ---
GI/ HPI - HPI Summary HPI Summary: Pt is 87 y/o F brought by ambulance to [facility] due to daughters concern of UTI. Pt has dementia so complete HPI unobtainable due to level 5 caveat. Daughter reports that usually her mother can speak clearly, but today she has been garbling which in the past has been indicative of pt having a UTI. - History of Current Complaint Chief Complaint: EDAltMentalStatus Time Seen by Provider: 11/27/18 21:39 Stated Complaint: AMS Hx Obtained From: Family/Paper Supervisor Hx From Patient Unobtainable Due To: Dementia Onset/Duration: Started Hours Ago, Still Present Timing: Constant Pain Intensity: 0 Aggravating Factor(s): Nothing Alleviating Factor(s): Nothing - Additional Pertinent History Primary Care Physician: MARGARITA - Allergy/Home Medications Allergies/Adverse Reactions: Allergies Allergy/AdvReac Type Severity Reaction Status Date / Time No Known Allergies Allergy Verified 06/06/15 09:34 PMH/Surg Hx/FS Hx/Imm Hx Endocrine/Hematology History: Denies: Hx Anticoagulant Therapy Cardiovascular History: Reports: Hx Hypercholesterolemia, Hx Hypertension Denies: Hx Pacemaker/ICD GI History: Reports: Hx Diverticulosis Musculoskeletal History: Reports: Hx Arthritis, Hx Osteoporosis Denies: Hx Rheumatoid Arthritis Sensory History: Reports: Hx Contacts or Glasses Denies: Hx Hearing Aid Opthamlomology History: Reports: Hx Contacts or Glasses Neurological History: Reports: Hx Dementia, Other Neuro Impairments/Disorders - intracranial hemorrhage 2010 Psychiatric History: Denies: Hx Panic Disorder - Cancer History Hx Chemotherapy: No Hx Radiation Therapy: No - Surgical History Surgery Procedure, Year, and Place: CATARACT 2000, POLYPECTOMY 2003 Infectious Disease History: No Infectious Disease History: Denies: Traveled Outside the [place] in Last 30 Days - Social History Alcohol Use: None Substance Use Type: Reports: None Smoking Status (MU): Never Smoked Tobacco - Additional Comments History Additional Comments: Complete Hx unobtainable due to level 5 caveat of dementia. Review of Systems - ROS Summary Review of Systems Summary: Complete ROS unobtainable due to level 5 caveat of dementia. Positive: Slurred Speech All Other Systems Reviewed And Are Negative: No Physical Exam - Summary Physical Exam Summary: Appearance: Well-appearing, Well-nourished, elderly woman lying in bed mumbling incoherently, makes good eye contact, non toxic appearing Skin: Warm, dry, no obvious rash Eyes: sclera anicteric, no conjunctival pallor ENT: mucous membranes moist Neck: deferred Respiratory: No signs of respiratory distress Cardiovascular: Appears well perfused, pulses are nml Abdomen: deferred Musculoskeletal: Moving all 4 extremities without obvious discomfort Neurological: Awake but unable to communicate, speech is nonsensible, no focal motor deficits, Psychiatric: affect is normal, does not appear anxious or depressed Triage Information Reviewed: Yes Vital Signs On Initial Exam: Initial Vitals Temp Pulse Resp BP Pulse Ox 98.8 F 70 18 192/95 97 11/27/18 21:34 11/27/18 21:34 11/27/18 21:34 11/27/18 21:34 11/27/18 21:34 Vital Signs Reviewed: Yes Completion Of Physical Exam Limited Due To: Dementia Diagnostics - Vital Signs Vital Signs Temp Pulse Resp BP Pulse Ox 11/27/18 21:34 98.8 F 70 18 192/95 97 - Laboratory Result Diagrams: 11/27/18 22:22 11/27/18 22:22 Lab Statement: Any lab studies that have been ordered have been reviewed, and results considered in the medical decision making process. - EKG 21:50 Cardiac Rate: NL - 75 bpm EKG Rhythm: Sinus Rhythm ST Segment: Normal Summary of EKG Findings: NSR at 75 BPM, P waves, QRS complex, and T waves are within normal limits, T waves and intervals are normal, no ischemic changes. This is a normal EKG. GIGU Course/Dx - Course Course Of Treatment: Pt is 87 y/o F brought by ambulance to [facility] due to daughters concern of UTI. Pt has dementia so complete HPI unobtainable due to level 5 caveat. Daughter reports that usually her mother can speak clearly, but has been garbling today which in the past has been indicative of pt having a UTI. Physical exam revealed elderly woman alert but unable to communicate, speech nonsensible, nontoxic appearing, and no focal motor deficits. EKG taken at 21:50 revealed NSR at 75 BPM, P waves, QRS complex, and T waves are within normal limits, T waves and intervals are normal, no ischemic changes. Labs revealed elevated lactic acid level and urine culture showed urinary tract infection. In the ED course pt was given fluids and Macrodantin. Pt will be discharged to her nursing facility with diagnosis of UTI. - Diagnoses Provider Diagnoses: Urinary tract infection Discharge - Sign-Out/Discharge Documenting (check all that apply): Patient Departure - Discharge - Discharge Plan Condition: Guarded Disposition: LONGTERM FACILITY Prescriptions: Nitrofurantoin Macrocrystals* [Macrodantin 100 mg*] 100 mg PO BID #14 cap Patient Education Materials: Urinary Tract Infection in Women (ED) Referrals: Cassie Klein MD [Primary Care Provider] - Additional Instructions: I am prescribing macrobid 100 mg bid for the infection. The urine culture should be checked on Friday and Friday to make sure the infection is susceptible to this antibiotic. - Billing Disposition and Condition Condition: GUARDED Disposition: Jail Facility - Attestation Statements Document Initiated by Jyothi: Yes Documenting Scribe: Lizbeth Harman Provider For Whom Jyothi is Documenting (Include Credential): Dr. Marcio Maldonado MD Scribe Attestation: Lizbeth Bradley, scribed for Dr. Marcio Maldonado MD on 12/01/18 at 1421. Scribe Documentation Reviewed: Yes Provider Attestation: The documentation as recorded by the scribe, Lizbeth Harman accurately reflects the service I personally performed and the decisions made by me, Dr. Marcio Maldonado MD Status of Scribe Document: Viewed
[2018-11-27 22:45] LABS: Albumin 3.9 g/dL (3.2-5.2); Albumin/Globulin Ratio 1.3 (1-3); Calcium 11.3 mg/dL (8.6-10.3); EGFR African American 55.2 (>60); EGFR Non-African American 45.7 (>60); Globulin 3.1 g/dL (2-4); Total Bilirubin 0.8 mg/dL (0.2-1.0)
[2018-11-27 22:47] LABS: Troponin I 0.01 ng/mL (<0.04)
[2018-11-28 00:08] LABS: Urine Appearance Cloudy; Urine Bacteria 2+ (Absent); Urine Bilirubin Negative (Negative); Urine Blood Negative (Negative); Urine Color Yellow; Urine Glucose Negative (Negative); Urine Ketones Trace (Negative); Urine Nitrite Positive (Negative); Urine Protein Negative (Negative); Urine Red Blood Cell Absent (Absent); Urine Specific Gravity 1.014 (1.010-1.030); Urine Urobilinogen Negative (Negative); Urine White Blood Cell 3+(>20/hpf) (Absent)
[2018-11-28] MEDS ORDERED: Nitrofurantoin Macrocrystals* 100 MG CAP PO ONE (00:34)
[2018-11-28 01:43] VITALS: BP 165/75
--- NOTE | 2018-12-01 09:57 | PN ---
Progress Note - Progress Note Date of Service: 11/27/18 Note: Urine culture final grew ESBL Escherichia coli 100,000 Patient was placed on Macrobid prior to discharge This medication is indeterminate for coverage Called patient's daughter, Magda at 9:45 AM to make aware of results Also called [facility] and spoke with RN at 10 AM for a change of antibiotics Patient is placed on ciprofloxacin 500 mg twice a day 5 days RN states she will give message to practitioner.
== END 2018-11-28 00:44 ==
LOC: ED 21:21
DX: N39.0 Urinary tract infection, site not specified (principal); B96.20 Unspecified Escherichia coli [E. coli] as the cause of diseases classified elsewhere; F03.90 Unspecified dementia, unspecified severity, without behavioral disturbance, psychotic disturbance, mood disturbance, and anxiety
CPT/HCPCS: 36415; 80053; 81003; 81015; 83605; 84484; 85025; 87077; 87086; 87186; 93005; 96360; 96361; 99283; A9270-GY

== ENCOUNTER 2019-01-22 08:56 | Emergency (ER) | payer MEDICARE ==
[2019-01-22] MEDS ORDERED: LORazepam INJ* 2 MG/ML 1 ML VIAL IV PUSH ONE ×2 (09:00→09:47)
[2019-01-22] MEDS ORDERED: LORazepam INJ* 2 MG/ML 1 ML VIAL ONE (09:01)
--- NOTE | 2019-01-22 09:39 | ED ---
Neurological HPI - HPI Summary HPI Summary: This patient is an 88 year old F brought in by ambulance to [facility] accompanied by her daughter with a chief complaint of aphasia, right sided weakness, and facial droop since this morning. Per EMS, the patients residential reports the patient normally has a speech impairment but did not confirm what her baseline looks like. Per EMS, the patient had an unwitnessed fall 1 day ago and hurt her right side, after which she was evaluated by the staff at the residential. Last known well time is 13:10. Per EMS, the patient is having tremors and bruising on right arm. Per patients daughter, the patient was recently diagnosed with a UTI and has not been taking her medications. She also notes the patient had a seizure 1.5 years ago. LEVEL FIVE CAVEAT DUE TO AMS. - History of Current Complaint Chief Complaint: EDNeurologicalDeficit Stated Complaint: POSS STROKE PER EMS Hx Obtained From: Family/Mine Laborer - patient's daughter, residential staff, EMS , Other: Onset/Duration: Sudden Onset, Still Present Timing: Constant Onset Severity: Moderate Current Severity: Moderate Seizure Severity: Moderate Neurological Deficit Location: Facial - right side droop, RUE, RLE Pain Intensity: 3 Pain Scale Used: 0-10 Numeric Character: Weak - on right side, Motor Weakness - in right side, Impaired Speech - aphasia, unable to communicate Syncope Context: Witnessed, Loss of Consciousness: No, Activity - tonic-clonic movement in upper and lower right extremities, At Rest Frequency: Episodes Lasting ____ (in Mins/Days/Weeks/Years) Syncope Location: Partial Extremities - RUE and RLE, Facial Movements Seizure Character: Total-Clonic Associated Signs and Symptoms: Positive: Weakness - in RLE and RUE, Seizure, Impaired Speech - aphasia, unable to communicate, Trauma: Recent - fall, bruising to right elbow Related Hx: Medication Non-Comliant, Trauma - fall 1 day ago, Seizure - 1.5 years ago - Additional Pertinent History Primary Care Physician: MARGARITA - Allergy/Home Medications Allergies/Adverse Reactions: Allergies Allergy/AdvReac Type Severity Reaction Status Date / Time No Known Allergies Allergy Verified 01/19/19 13:47 PMH/Surg Hx/FS Hx/Imm Hx Endocrine/Hematology History: Denies: Hx Anticoagulant Therapy Cardiovascular History: Reports: Hx Hypercholesterolemia, Hx Hypertension Denies: Hx Pacemaker/ICD GI History: Reports: Hx Diverticulosis Musculoskeletal History: Reports: Hx Arthritis, Hx Osteoporosis Denies: Hx Rheumatoid Arthritis Sensory History: Reports: Hx Contacts or Glasses Denies: Hx Hearing Aid Opthamlomology History: Reports: Hx Contacts or Glasses Neurological History: Reports: Hx Dementia, Other Neuro Impairments/Disorders - intracranial hemorrhage 2010 Psychiatric History: Denies: Hx Panic Disorder - Cancer History Hx Chemotherapy: No Hx Radiation Therapy: No - Surgical History Surgery Procedure, Year, and Place: CATARACT 2000, POLYPECTOMY 2003 Infectious Disease History: No Infectious Disease History: Denies: Traveled Outside the [place] in Last 30 Days - Family History Known Family History: Negative: Diabetes Family History: neg: Breast CA - Social History Lives: At [facility] Alcohol Use: None Hx Substance Use: No Substance Use Type: Reports: None Hx Tobacco Use: No Smoking Status (MU): Never Smoked Tobacco Review of Systems Positive: Bruising - to right elbow Neurological: Other - tremors in right side Positive: Weakness - in right side, Slurred Speech - aphasia, unable to communicate All Other Systems Reviewed And Are Negative: No - Comments Additional Review of Systems Comments: LEVEL FIVE CAVEAT DUE TO AMS Physical Exam - Summary Physical Exam Summary: VITAL SIGNS: Reviewed. GENERAL: Patient is a well-developed and nourished FEMALE who is lying comfortable in the stretcher.Patient is not in any acute respiratory distress. HEAD AND FACE: No signs of trauma. No ecchymosis, hematomas or skull depressions. No sinus tenderness. EYES: PERRLA, EOMI x 2, No injected conjunctiva, no nystagmus. No photophobia. EARS: Hearing grossly intact. Ear canals and tympanic membranes are within normal limits. MOUTH: Oropharynx within normal limits. Dry mucous membranes NECK: Supple, trachea is midline, no adenopathy, no JVD, no carotid bruit, no c- spine tenderness, neck with full ROM. No meningeal signs, no Kernig's or brudzinskis signs. CHEST: Symmetric, no tenderness at palpation LUNGS: Clear to auscultation bilaterally. No wheezing or crackles. CVS: Regular rate and rhythm, S1 and S2 present, no murmurs or gallops appreciated. ABDOMEN: Soft, non-tender. No signs of distention. No rebound no guarding, and no masses palpated. Bowel sounds are normal. EXTREMITIES: FROM in all major joints, no edema, no cyanosis or clubbing. hematoma ecchymosis on right elbow. NEURO: Alert and oriented x 3. Tonic-clonic movement in upper and lower right extremities. Aphasia SKIN: Dry and warm, hematoma ecchymosis on right elbow GCS: 15 LEVEL FIVE CAVEAT DUE TO AMS Triage Information Reviewed: Yes Vital Signs On Initial Exam: Initial Vitals Pulse Resp Pulse Ox 94 20 97 01/22/19 09:03 01/22/19 09:03 01/22/19 09:03 Vital Signs Reviewed: Yes Procedures - Splinting Right Upper Extremity Location: Right proximal ulna Hand-Made Type: orthoglass Splint: ulnar Pre-Proc Neuro Vasc Exam: normal Post-Proc Neuro Vasc Exam: normal, unchanged from pre-exam Diagnostics - Vital Signs Vital Signs Temp Pulse Resp BP Pulse Ox 01/22/19 09:07 86 34 156/85 95 01/22/19 09:05 99.5 F 82 25 156/85 96 01/22/19 09:03 94 22 97 - Laboratory Result Diagrams: 01/22/19 09:39 01/22/19 09:39 Lab Statement: Any lab studies that have been ordered have been reviewed, and results considered in the medical decision making process. - Radiology CXR Radiology Interpretation Completed By: Radiologist Summary of Radiographic Findings: No active cardiopulmonary disease. Dr. Navarro has reviewed this report. Right elbow XR Radiology Interpretation Completed By: Radiologist Summary of Radiographic Findings: Fracture of the proximal ulna. Dr. Navarro has reviewed this report. - CT Brain CT CT Interpretation Completed By: Radiologist Summary of CT Findings: IMPRESSION: 1. 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 2. CHRONIC SMALL VESSEL ISCHEMIC CHANGE. 3. NO ACUTE INTRACRANIAL PATHOLOGY. Dr. Navarro has reviewed this report. - EKG 10:05 Cardiac Rate: NL - at 85 bpm EKG Rhythm: Sinus Rhythm ST Segment: Normal EKG Comparison: No Significant Change - from EKG on 11/27/2018 Summary of EKG Findings: EKG reveals sinus rhythm at [address] elevations. No change from EKG on 11/27/2018. Course/Dx - Course Assessment/Plan: This patient is a 88-year-old female who presents to the emergency department after she was transferred from a residential complaining that the patient is having and right-sided weakness and facial droop which is new since yesterday. The patient is well-known he was yesterday at 1310. This morning she was found to have the symptoms. The patient has HEDRICK form with requests for DNR/DNI, comfort care and do not transferred to the hospital. However the physician at the facility requested the ambulance to bring the patient to the hospital. At arrival the patient is having these of focal seizures with a tonic-clonic movement the and the right side. She has history of seizures. The patient takes Keppra 500 mg twice a day. Therefore, the patient was given Ativan 1 mg IV however she continued to have the same symptoms. Therefore she was given another milligram of IV Ativan. I discussed my physical exam and findings with Dr. Pizarro from neurology and he recommends Keppra 1000 mg IV and he will come to consult the patient. After Dr. Pizarro consulted and discussed the findings and test results with the patients daughters he was made a decision that the patient should return to the residential with comfort care and also a referral for hospice care. Both of the daughters agree as well as Dr. Pizarro. Therefore the patient will be discharged Dr. the residential. Blood work without any significant abnormality except for those slight anemia, sodium 146, potassium 3.2, chloride 112, BUN 26 and creatinine 1.26. Calcium is 11.8, creatinine kinase is 331 troponin 0.06. Urinalysis is negative for UTI, however he looks to be contaminated. Patients daughter also reports that the patient is being treated for UTI. Head CT impression no acute Pathology. Chest x-ray impression : no active cardiopulmonary disease. X-ray of the right elbow impression: Fracture of the proximal ulna. The patient was placed in the seizures pain. This patient has remained between Dr. Muñiz, the patients daughters and I that the patient will be back to the residential with comfort measures and hospice care. - Diagnoses Provider Diagnoses: Seizure, Fracture of proximal end of right ulna, Renal failure, Dehydration - Physician Notifications Discussed Care Of Patient With: Daniel Pizarro Time Discussed With Above Provider: 09:30 Instructed by Provider To: MD Will See In ED - discussed care with family and reached decision to continue with comfort care. - Critical Care Time Critical Care Time: 30-74 min Discharge - Sign-Out/Discharge Documenting (check all that apply): Patient Departure - discharge home to residential Patient Received Moderate/Deep Sedation with Procedure: No - Discharge Plan Condition: Stable Disposition: HOME Patient Education Materials: Arm Fracture in Adults (ED), Nonepileptic Seizures (ED) Referrals: Cassie Klein MD [Primary Care Provider] - Additional Instructions: Follow up with primary care physician in 1-2 days. Continue with comfort care measures. - Billing Disposition and Condition Condition: STABLE Disposition: Home - Attestation Statements Document Initiated by Scribe: Yes Documenting Scribe: Joi Robert Provider For Whom Jyothi is Documenting (Include Credential): Gerard Navarro MD Scribe Attestation: Joi Bradley scribed for Gerard Navarro MD on 01/22/19 at 1804. Scribe Documentation Reviewed: Yes Provider Attestation: The documentation as recorded by the [email or web address] accurately reflects the service I personally performed and the decisions made by , Gerard Navarro MD Status of Scribe Document: Viewed
[2019-01-22 09:59] LABS: ABS Basophils 0 10^3/ul (0-0.2); ABS Eosinophils 0 10^3/ul (0-0.6); ABS Lymphocytes 1.1 10^3/ul (1.0-4.8); ABS Monocytes 0.7 10^3/ul (0-0.8); ABS Neutrophils 8.2 10^3/ul (1.5-7.7); ABS Nucleated RBC 0 10^3/ul; Eosinophil % 0 %; Hematocrit 35 % (33-41); Hemoglobin 11.6 g/dL (12.0-16.0); Lymphocyte % 11.4 %; Mean Corpuscular HGB Conc 33 g/dL (31-36); Mean Corpuscular Hemoglobin 33 pg (27-31); Mean Corpuscular Volume 98 fL (80-97); Mean Platelet Volume 8.8 fL (7.4-10.4); Nucleated Red Blood Cells % 0; Platelet Count 206 10^3/uL (150-450); Red Blood Count 3.58 10^6 /uL (3.70-4.87); Red Cell Distribution Width 14 % (10.5-15)
[2019-01-22] MEDS ORDERED: levETIRAcetam 1000MG IVPREMIX* 1,000 MG/100 ML BAG IVPB SCH (10:00)
[2019-01-22 10:14] LABS: INR 1.01 (0.77-1.02)
[2019-01-22 10:21] LABS: ALT 19 U/L (7-52); AST 24 U/L (13-39); Albumin 3.8 g/dL (3.2-5.2); Albumin/Globulin Ratio 1.4 (1-3); Alkaline Phosphatase 72 U/L (34-104); BUN/Creatinine Ratio 20.6 (8-20); Blood Urea Nitrogen 26 mg/dL (6-24); CO2 Carbon Dioxide 25 mmol/L (22-32); Calcium 11.8 mg/dL (8.6-10.3); Creatine Kinase 331 U/L (10-223); EGFR African American 48.6 (>60); EGFR Non-African American 40.2 (>60); Globulin 2.7 g/dL (2-4); Glucose 136 mg/dL (70-100); Magnesium 2.1 mg/dL (1.9-2.7); Potassium 3.3 mmol/L (3.5-5.0); Total Protein 6.5 g/dL (6.4-8.9)
[2019-01-22 10:23] LABS: Anion Gap 9 mmol/L (2-11); Chloride 112 mmol/L (101-111); Sodium 146 mmol/L (135-145)
[2019-01-22 10:24] LABS: Troponin I 0.06 ng/mL (<0.04)
[2019-01-22 10:25] LABS: Acetaminophen < 15 mcg/mL; Salicylate < 2.50 mg/dL (<30)
[2019-01-22 10:38] LABS: TSH (Thyroid Stimulating Horm) 0.74 mcIU/mL (0.34-5.60)
[2019-01-22 11:51] LABS: Urine Appearance Cloudy; Urine Bacteria Absent (Absent); Urine Bilirubin Negative (Negative); Urine Blood Negative (Negative); Urine Color Amber; Urine Glucose Negative (Negative); Urine Ketones Trace (Negative); Urine Nitrite Negative (Negative); Urine Protein 1+(30 mg/dL) (Negative); Urine Red Blood Cell 1+(3-5/hpf) (Absent); Urine Specific Gravity 1.023 (1.010-1.030); Urine Squamous Epithelial Cell Present (Absent); Urine Transitional Epithelial Present (Absent); Urine Urobilinogen Negative (Negative); Urine White Blood Cell 3+(>20/hpf) (Absent)
[2019-01-22 12:19] LABS: Rapid HIV 1 Nonreactive (Nonreactive)
[2019-01-22 12:35] VITALS: BP 152/85
--- NOTE | 2019-01-22 17:01 | CONS ---
CONSULTATION REPORT: DATE OF CONSULT: 01/22/19 PATIENT OF: Dr. Navarro. 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 She was brought in with a chief complaint of aphasia, right-sided weakness, and facial droop since this morning, but when she arrived, she was having frequent episodes lasting a couple of minutes and occurring without fully regaining consciousness with right-sided face and arm jerking. Of note, the patient has significant dementia and the family was beginning to contact hospice care and making her comfort care since she did not want to be in this state ever and the family had discussed including the healthcare proxy had discussed this with her mother in detail. IMPRESSION AND PLAN: I had spoken to Dr. Navarro, who said that the correction had sent in for treatment. He was beginning Ativan and we discussed loading with Keppra 1000 mg since she had had prior seizures, but she had been on Keppra 500 twice a day. I came to the ER within 15 or 20 minutes of being called and I was having them begin the Keppra as I was talking to the family and beginning to look at the patient, the patient was obtunded initially and then within minutes of my arrival began having another right-sided seizure, rhythmic jerking of the right side of the mouth, head jerking as well as the right arm. This lasted 2 to 3 minutes. At the same time, the family said that they never wanted her to transferred to the hospital and to the ER and would want her back at her correction for comfort care. Dr. Navarro said that this would be an acceptable path to take and I discussed in length the neurological issues of having further seizures including generalized seizures to the point that someone could from the status epilepticus. I discussed that it is possible even without treatment, it may but that is by no means assure thing and I discussed that there may be an underlying cause for the breakthrough of the seizures if we are not pursuing. I did not do any further evaluation and her treatment with Keppra was stopped and the plan was for the patient to be transferred back to the correction. Thank you for sharing her case. [id number]/[facility] [place] #: [id number] ITZEL
--- NOTE | 2019-01-22 17:31 | CONSULT ---
Palliative / Hospice Consult Ordering Provider: Gerard Woods/[facility] PCP-Latoya Referal Reason: Goals of care discussion/hospice evaluation - Subjective Code Status: DNR Advance Directives Location: In Chart MOLST Part A Completed: Yes - with pt MOLST Part E Completed:: Yes - with pt - History or Present Illness History or Present Illness: 88yo female resident of [facility] with history of CVA and seizure disorder who presented to the ER s/p fall 1 day ago and with new aphasia and R sided weakness. Pt had seizure activity in the ER and was evaluated by neurology who advised increasing her Keppra dose. Pt also had an xray of her R arm which showed fracture of the proximal ulna. 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 Pt has a MOLST form that states not to be brought to the ER but [facility] staff called the family and recommended transport to the ER and family agreed. Family had decided they didn't want a further workup of pt's seizures or to continue the keppra. Instead they requested a palliative consult to help with decision making and enquire about hospice. 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 All history is from the family and old medical records pt is unable to answer questions. Pt is a non smoker, no etoh and no drugs. Pt had been living at [facility] since her last hospitalization(2016) with onset of seizure disorder prior to that she lived at home with her . Lab Values: Abnormal Lab Results 01/22/19 01/22/19 01/22/19 09:39 09:39 09:39 WBC 10.0 RBC 3.58 L Hgb 11.6 L Hct 35 MCV 98 H MCH 33 H MCHC 33 RDW 14 Plt Count 206 MPV 8.8 Neut % (Auto) 81.5 Lymph % (Auto) 11.4 [place] % (Auto) 7.0 Eos % (Auto) 0 Baso % (Auto) 0.1 Absolute Neuts (auto) 8.2 H Absolute Lymphs (auto) 1.1 Absolute Monos (auto) 0.7 Absolute Eos (auto) 0 Absolute Basos (auto) 0 Absolute Nucleated RBC 0 Nucleated RBC % 0 INR (Anticoag Therapy) 1.01 Sodium 146 H Potassium 3.3 L Chloride 112 H Carbon Dioxide 25 Anion Gap 9 BUN 26 H Creatinine 1.26 H Est GFR ( Amer) 48.6 Est GFR (Non-Af Amer) 40.2 BUN/Creatinine Ratio 20.6 H Glucose 136 H Lactic Acid Calcium 11.8 H Magnesium 2.1 Total Bilirubin 1.30 H AST 24 ALT 19 Alkaline Phosphatase 72 Ammonia Total Creatine Kinase 331 H Troponin I 0.06 H* Total Protein 6.5 Albumin 3.8 Globulin 2.7 Albumin/Globulin Ratio 1.4 TSH 0.74 Urine Color Urine Appearance Urine pH Ur Specific [place] Urine Protein Urine Ketones Urine Blood Urine Nitrate Urine Bilirubin Urine Urobilinogen Ur Leukocyte Esterase Urine WBC (Auto) Urine RBC (Auto) Ur Squamous Epith Cells Ur Transition Epith Cell Urine Bacteria Hyaline Casts Urine Glucose Urine Ascorbic Acid Salicylates < 2.50 Acetaminophen < 15 HIV 1&2 Antibody Rapid 01/22/19 01/22/19 01/22/19 09:39 09:39 09:39 WBC RBC Hgb Hct MCV MCH MCHC RDW Plt Count MPV Neut % (Auto) Lymph % (Auto) [place] % (Auto) Eos % (Auto) Baso % (Auto) Absolute Neuts (auto) Absolute Lymphs (auto) Absolute Monos (auto) Absolute Eos (auto) Absolute Basos (auto) Absolute Nucleated RBC Nucleated RBC % INR (Anticoag Therapy) Sodium Potassium Chloride Carbon Dioxide Anion Gap BUN Creatinine Est GFR ( Amer) Est GFR (Non-Af Amer) BUN/Creatinine Ratio Glucose Lactic Acid 1.9 Calcium Magnesium Total Bilirubin AST ALT Alkaline Phosphatase Ammonia 48 Total Creatine Kinase Troponin I Total Protein Albumin Globulin Albumin/Globulin Ratio TSH Urine Color Urine Appearance Urine pH Ur Specific [place] Urine Protein Urine Ketones Urine Blood Urine Nitrate Urine Bilirubin Urine Urobilinogen Ur Leukocyte Esterase Urine WBC (Auto) Urine RBC (Auto) Ur Squamous Epith Cells Ur Transition Epith Cell Urine Bacteria Hyaline Casts Urine Glucose Urine Ascorbic Acid Salicylates Acetaminophen HIV 1&2 Antibody Rapid Nonreactive 01/22/19 11:38 WBC RBC Hgb Hct MCV MCH MCHC RDW Plt Count MPV Neut % (Auto) Lymph % (Auto) [place] % (Auto) Eos % (Auto) Baso % (Auto) Absolute Neuts (auto) Absolute Lymphs (auto) Absolute Monos (auto) Absolute Eos (auto) Absolute Basos (auto) Absolute Nucleated RBC Nucleated RBC % INR (Anticoag Therapy) Sodium Potassium Chloride Carbon Dioxide Anion Gap BUN Creatinine Est GFR ( Amer) Est GFR (Non-Af Amer) BUN/Creatinine Ratio Glucose Lactic Acid Calcium Magnesium Total Bilirubin AST ALT Alkaline Phosphatase Ammonia Total Creatine Kinase Troponin I Total Protein Albumin Globulin Albumin/Globulin Ratio TSH Urine Color [place] Urine Appearance Cloudy Urine pH 5.0 Ur Specific [place] 1.023 Urine Protein 1+(30 mg/dl) A Urine Ketones Trace A Urine Blood Negative Urine Nitrate Negative Urine Bilirubin Negative Urine Urobilinogen Negative Ur Leukocyte Esterase 3+ A Urine WBC (Auto) 3+(>20/hpf) A Urine RBC (Auto) 1+(3-5/hpf) A Ur Squamous Epith Cells Present A Ur Transition Epith Cell Present A Urine Bacteria Absent Hyaline Casts Present A Urine Glucose Negative Urine Ascorbic Acid * A Salicylates Acetaminophen HIV 1&2 Antibody Rapid Laboratory Last Values WBC 10.0 10^3/uL (3.5-10.8) 01/22/19 09:39 RBC 3.58 10^6 /uL (3.70-4.87) L 01/22/19 09:39 Hgb 11.6 g/dL (12.0-16.0) L 01/22/19 09:39 Hct 35 % (33-41) 01/22/19 09:39 MCV 98 fL (80-97) H 01/22/19 09:39 MCH 33 pg (27-31) H 01/22/19 09:39 MCHC 33 g/dL (31-36) 01/22/19 09:39 RDW 14 % (10.5-15) 01/22/19 09:39 Plt Count 206 10^3/uL (150-450) 01/22/19 09:39 MPV 8.8 fL (7.4-10.4) 01/22/19 09:39 Neut % (Auto) 81.5 % 01/22/19 09:39 Lymph % (Auto) 11.4 % 01/22/19 09:39 [place] % (Auto) 7.0 % 01/22/19 09:39 Eos % (Auto) 0 % 01/22/19 09:39 Baso % (Auto) 0.1 % 01/22/19 09:39 Absolute Neuts (auto) 8.2 10^3/ul (1.5-7.7) H 01/22/19 09:39 Absolute Lymphs (auto) 1.1 10^3/ul (1.0-4.8) 01/22/19 09:39 Absolute Monos (auto) 0.7 10^3/ul (0-0.8) 01/22/19 09:39 Absolute Eos (auto) 0 10^3/ul (0-0.6) 01/22/19 09:39 Absolute Basos (auto) 0 10^3/ul (0-0.2) 01/22/19 09:39 Absolute Nucleated RBC 0 10^3/ul 01/22/19 09:39 Nucleated RBC % 0 01/22/19 09:39 INR (Anticoag Therapy) 1.01 (0.77-1.02) 01/22/19 09:39 Sodium 146 mmol/L (135-145) H 01/22/19 09:39 Potassium 3.3 mmol/L (3.5-5.0) L 01/22/19 09:39 Chloride 112 mmol/L (101-111) H 01/22/19 09:39 Carbon Dioxide 25 mmol/L (22-32) 01/22/19 09:39 Anion Gap 9 mmol/L (2-11) 01/22/19 09:39 BUN 26 mg/dL (6-24) H 01/22/19 09:39 Creatinine 1.26 mg/dL (0.51-0.95) H 01/22/19 09:39 Est GFR ( Amer) 48.6 (>60) 01/22/19 09:39 Est GFR (Non-Af Amer) 40.2 (>60) 01/22/19 09:39 BUN/Creatinine Ratio 20.6 (8-20) H 01/22/19 09:39 Glucose 136 mg/dL (70-100) H 01/22/19 09:39 Lactic Acid 1.9 mmol/L (0.5-2.0) 01/22/19 09:39 Calcium 11.8 mg/dL (8.6-10.3) H 01/22/19 09:39 Magnesium 2.1 mg/dL (1.9-2.7) 01/22/19 09:39 Total Bilirubin 1.30 mg/dL (0.2-1.0) H 01/22/19 09:39 AST 24 U/L (13-39) 01/22/19 09:39 ALT 19 U/L (7-52) 01/22/19 09:39 Alkaline Phosphatase 72 U/L (34-104) 01/22/19 09:39 Ammonia 48 mcmol/L (16-53) 01/22/19 09:39 Total Creatine Kinase 331 U/L (10-223) H 01/22/19 09:39 Troponin I 0.06 ng/mL (<0.04) H* 01/22/19 09:39 Total Protein 6.5 g/dL (6.4-8.9) 01/22/19 09:39 Albumin 3.8 g/dL (3.2-5.2) 01/22/19 09:39 Globulin 2.7 g/dL (2-4) 01/22/19 09:39 Albumin/Globulin Ratio 1.4 (1-3) 01/22/19 09:39 TSH 0.74 mcIU/mL (0.34-5.60) 01/22/19 09:39 Urine Color [place] 01/22/19 11:38 Urine Appearance Cloudy 01/22/19 11:38 Urine pH 5.0 (5-9) 01/22/19 11:38 Ur Specific [place] 1.023 (1.010-1.030) 01/22/19 11:38 Urine Protein 1+(30 mg/dl) (Negative) A 01/22/19 11:38 Urine Ketones Trace (Negative) A 01/22/19 11:38 Urine Blood Negative (Negative) 01/22/19 11:38 Urine Nitrate Negative (Negative) 01/22/19 11:38 Urine Bilirubin Negative (Negative) 01/22/19 11:38 Urine Urobilinogen Negative (Negative) 01/22/19 11:38 Ur Leukocyte Esterase 3+ (Negative) A 01/22/19 11:38 Urine WBC (Auto) 3+(>20/hpf) (Absent) A 01/22/19 11:38 Urine RBC (Auto) 1+(3-5/hpf) (Absent) A 01/22/19 11:38 Ur Squamous Epith Cells Present (Absent) A 01/22/19 11:38 Ur Transition Epith Cell Present (Absent) A 01/22/19 11:38 Urine Bacteria Absent (Absent) 01/22/19 11:38 Hyaline Casts Present (Absent) A 01/22/19 11:38 Urine Glucose Negative (Negative) 01/22/19 11:38 Urine Ascorbic Acid * (Negative) A 01/22/19 11:38 Salicylates < 2.50 mg/dL (<30) 01/22/19 09:39 Acetaminophen < 15 mcg/mL 01/22/19 09:39 HIV 1&2 Antibody Rapid Nonreactive (Nonreactive) 01/22/19 09:39 - Objective Active Medications: Levetiracetam (Keppra Iv Premix*) 1,000 mg in 100 mls @ 400 mls/hr IVPB Q12H NEGAR Last Admin: 01/22/19 10:33 Dose: Not Given Vital Signs: Vital Signs: Temp Pulse Resp BP Pulse Ox 0 F 82 32 152/85 94 01/22/19 12:34 01/22/19 12:34 01/22/19 12:34 01/22/19 12:34 01/22/19 12:34 Patient Weight: Weight 49.895 kg Intake and Output: Intake & Output 01/20/19 01/21/19 01/22/19 01/23/19 06:59 06:59 06:59 06:59 Weight 49.895 kg Eyes: No Scleral Icterus Neck: NL Appearance and Movements; NL JVP Cardiovascular: NL Sounds; No Murmurs; No JVD Respiratory: Symmetrical Chest Expansion and Respiratory Effort, Clear to Auscultation Extremities: No Edema - Assessment Assessment: 88 yo female resident of [facility] with severe dementia, multiple CVAs and seizure disorder eligible for hospice - Plan Consult Plan (MU): Hospice Plan: Spoke with pt's daughters Henna Hoover(HCP) [phone] and other daughter who is the POA about goals of care. Reviewed MOLST form which is DNR/DNI and comfort measures. We discussed benefits of hospice and a brochure was given. They were interested in Hospice residence but there were no beds this am. Reminded them that they can self refer to hospice. Also reminded them the MOLST form and hospice decision can be changed. They don't want their mother to suffer or have heroic measures. They declined further evaluation of the seizure and R sided weakness opting instead to return to [facility] on comfort care. They are also going to discuss with other family members about [facility] I explained the [facility] would have to send a referral. Pt is eligible for hospice with diagnosis of severe dementia, multiple CVAs and seizure disorder. Offered support very stressful to see their mom's health declining. KPS 40% PPS 30% - Time On Unit Date of Evaluation: 01/22/19 Hospice Consult Time in: 11:30 Hospice Consult Time Out: 12:30 Hospice Consult Time Total: 60 > 50% of Time Spend In Counseling or Coordinating Care: Yes
[2019-01-23 15:14] LABS: Hepatitis Be Antigen Negative (Negative)
[2019-01-23 15:29] LABS: Hepatitis Be Antibody Negative (Negative)
[2019-01-25 13:18] LABS: Hepatitis B Surface Antigen Nonreactive (Nonreactive)
[2019-01-25 13:56] LABS: Hepatitis C Antibody Nonreactive (Nonreactive)
[2019-01-25 14:32] LABS: Hepatitis B Surface AB Not Immune (Immune)
== END 2019-01-22 12:34 | disposition home or self-care (01) ==
LOC: ED 08:56
DX: R56.9 Unspecified convulsions (principal); N19 Unspecified kidney failure; E86.0 Dehydration; S52.001A Unspecified fracture of upper end of right ulna, initial encounter for closed fracture; W19.XXXA Unspecified fall, initial encounter; Y92.9 Unspecified place or not applicable
CPT/HCPCS: 36415; 70450; 71045; 80053; 80177; 80329; 81003; 81015; 82140; 82550; 83605; 83735; 84443; 84484; 85025; 85610; 86703; 86706; 86707; 86803; 87040; 87086; 87340; 87350; 93005; 96374; 96375; 96376; 99284; G0480; J1953; J2060